=== PATIENT | male | born 1945 | race Caucasian/White ===

== ENCOUNTER 2019-06-22 07:45 | Emergency (ER) | payer MEDICARE ==
[2019-06-22] MEDS ORDERED: Furosemide 40 MG/4 ML VIAL ONE (08:03)
[2019-06-22] MEDS ORDERED: Aspirin Chewable 81 MG TAB ONE (08:03)
[2019-06-22 08:08] LABS: #Basophils 0.1 thou/uL (0.0-0.2); #Eosinphils 0.1 thou/uL (0.0-0.7); #Lymphocytes 0.6 thou/uL (1.20-3.40); #Monocytes 0.6 thou/uL (0.11-0.59); #Neutrophils 4.2 thou/uL (1.40-6.50); %Basophils 2.4 % (0.0-1.0); %Eosinophils 2.2 % (0.0-10.0); %Lymphocytes 10.6 % (21.0-51.0); %Monocytes 10.1 % (0.0-10.0); %Neutrophils 74.6 % (42.0-75.0); Mean Corpuscular HGB CONC 29.5 g/dL (32.0-36.0); Mean Corpuscular Hemoglobin 27.9 pg (27.0-31.0); Mean Corpuscular Volume 94.7 fL (78.0-98.0); Platelet Count 170 thou/uL (130-400); RBC Distribution Width 13.8 % (11.5-14.5); Red Blood Cell (RBC) Count 5.39 mill/uL (4.70-6.10); White Blood Cell (WBC) Count 5.6 thou/uL (4.8-10.8)
--- NOTE | 2019-06-22 08:10 | RAD ---
RADIOGRAPH CHEST 1 VIEW: DATE: 06/22/2019 TIME: 8:07 AM HISTORY: 73-year-old male with dyspnea COMPARISON: 10/10/2014 FINDINGS: New finding of dense opacification of left lower lobe with complete silhouetting the left hemidiaphra gm. No consolidation in the rest of the visualized lung angeles. No pneumothorax. IMPRESSION: Left lower lobe consolidation with possible left pleural effusion.
[2019-06-22 08:28] LABS: ALT (SGPT) 20 U/L (8-55); AST (SGOT) 25 U/L (5-34); Albumin 3.7 g/dL (3.4-4.8); Alkaline Phosphatase 87 U/L (40-110); Anion Gap 15 mmol/L (10-20); BUN (Urea Nitrogen) 22 mg/dL (8.4-25.7); Bilirubin, Total 1.7 mg/dL (0.2-1.2); CK (CPK) 111 U/L (30-200); Calc. Creatinine Clearance 0 mL/min (70-130); Calcium 9.2 mg/dL (7.8-10.44); Carbon Dioxide 27 mmol/L (23-31); Chloride 105 mmol/L (98-107); Estimated GFR-MDRD 48; Globulin 3.3 g/dL (2.4-3.5); Glucose 165 mg/dL (83-110); Potassium 3.7 mmol/L (3.5-5.1); Sodium 143 mmol/L (136-145)
[2019-06-22 08:44] LABS: Bilirubin Negative (Negative); Blood, Urine Trace (Negative); Clarity Clear (Clear); Glucose, Urine (Dipstick) 100 mg/dL (Negative); Leukocyte Negative (Negative); Nitrite Negative (Negative); Protein, Urine (Dipstick) > or equal to 300 mg/dL (Neg-Trace)
[2019-06-22 08:48] LABS: Bacteria/HPF Rare-Few HPF (None Seen); RBC/HPF 0-3 HPF (0-3); Squamous Epithelial 0-3 HPF (0-3); WBC/HPF 0-3 HPF (0-3)
[2019-06-22] MEDS ORDERED: Nitroglycerin 0.4 MG TAB 1 EACH ONE (08:49)
[2019-06-22] MEDS ORDERED: Nitroglycerin 50 MG/250 ML BOT 250 ML ONE (08:51)
[2019-06-22] MEDS ORDERED: Enoxaparin Sodium 40 MG/0.4 ML SYRINGE ONE (09:07)
[2019-06-22] MEDS ORDERED: Enoxaparin Sodium 60 MG/0.6 ML SYRINGE ONE (09:07)
[2019-06-22] MEDS ORDERED: Azithromycin 250 MG TAB ONE (09:35)
[2019-06-22] MEDS ORDERED: cefTRIAXone\\ROCEPHIN 1 GM VIAL ONE (09:35)
== END 2019-06-22 09:58 | disposition short-term general hospital (02) ==
LOC: MADERS 07:45
DX: I50.9 Heart failure, unspecified (principal); I48.91 Unspecified atrial fibrillation; F17.210 Nicotine dependence, cigarettes, uncomplicated
CPT/HCPCS: 71045; 80053; 81003; 81015; 82550; 82553; 83605; 83880; 84484; 85025; 85379; 87040; 87804; 93005; 94760; 96365; 96372; 96375; J0696; J1650; J1940

== ENCOUNTER 2019-06-27 13:32 | Inpatient (IN) | payer MEDICARE ==
[2019-06-27] MEDS ORDERED: Ventolin HFA Inhaler 60 PUFF INHALER INH PRN (21:07)
[2019-06-27] MEDS: Apixaban 5 MG TAB PO SCH (21:32)
[2019-06-27] MEDS: Amlodipine 5 MG TAB PO SCH (21:33)
[2019-06-27] MEDS: Lisinopril 5 MG TAB PO SCH (21:33)
[2019-06-27] MEDS: Atorvastatin Calcium 40 MG TAB PO SCH ×2 (21:33→21:39)
[2019-06-27] MEDS: Gabapentin 300 MG CAP PO PRN (21:40)
[2019-06-27] MEDS: Nicotine 21 MG PATCH TOP SCH (21:42)
[2019-06-27 22:51] VITALS: BMI 29.1
[2019-06-28 05:51] LABS: Band 7 % (5-11); Eosinophils 2 % (0-10); Hemoglobin 13.8 g/dL (14.0-18.0); Lymphocytes 8 % (21-51); MDiff Complete? YES; Mean Corpuscular HGB CONC 30.2 g/dL (32.0-36.0); Mean Corpuscular Hemoglobin 27.8 pg (27.0-31.0); Mean Corpuscular Volume 92.2 fL (78.0-98.0); Monocytes 7 % (0-10); Neutrophil 76 % (42-75); Platelet Count 158 thou/uL (130-400); Platelet Morphology Comment Appears Adequate; RBC Distribution Width 13.5 % (11.5-14.5); Red Blood Cell (RBC) Count 4.95 mill/uL (4.70-6.10); White Blood Cell (WBC) Count 5.4 thou/uL (4.8-10.8)
[2019-06-28 05:58] LABS: ALT (SGPT) 23 U/L (8-55); AST (SGOT) 30 U/L (5-34); Albumin 3.4 g/dL (3.4-4.8); Alkaline Phosphatase 84 U/L (40-110); Anion Gap 14 mmol/L (10-20); BUN (Urea Nitrogen) 24 mg/dL (8.4-25.7); Bilirubin, Total 1.2 mg/dL (0.2-1.2); Calc. Creatinine Clearance 75 mL/min (70-130); Calcium 9.1 mg/dL (7.8-10.44); Carbon Dioxide 25 mmol/L (23-31); Chloride 105 mmol/L (98-107); Estimated GFR-MDRD 56; Globulin 3.2 g/dL (2.4-3.5); Glucose 138 mg/dL (83-110); Potassium 3.8 mmol/L (3.5-5.1); Protein, Total 6.6 g/dL (5.8-8.1); Sodium 140 mmol/L (136-145)
[2019-06-28] MEDS ORDERED: Carvedilol 12.5 MG TAB PO SCH (08:00)
[2019-06-28] MEDS: Apixaban 5 MG TAB PO SCH ×2 (08:13→21:07)
[2019-06-28] MEDS: Furosemide 40 MG TAB PO SCH ×2 (08:13→14:44)
[2019-06-28] MEDS: Carvedilol 12.5 MG TAB PO SCH ×2 (08:13→17:07)
[2019-06-28] MEDS: Aspirin Chewable 81 MG TAB PO SCH (08:13)
[2019-06-28] MEDS: Amlodipine 5 MG TAB PO SCH ×2 (08:13→21:08)
[2019-06-28] MEDS: Lisinopril 5 MG TAB PO SCH ×2 (08:13→21:07)
[2019-06-28] MEDS ORDERED: Acetaminophen 325 MG TAB PO PRN (09:08)
[2019-06-28] MEDS ORDERED: FLU VACC TS2019-20(65YR UP)/PF 180 MCG/0.5 ML SYRINGE IM ONE (21:00)
[2019-06-28] MEDS: Gabapentin 300 MG CAP PO PRN (21:06)
[2019-06-28] MEDS: Atorvastatin Calcium 40 MG TAB PO SCH (21:06)
[2019-06-28] MEDS: Nicotine 21 MG PATCH TOP SCH (21:06)
--- NOTE | 2019-06-29 07:26 | HP ---
Admitted to [facility] on the evening of 06/27/2019. CHIEF COMPLAINT: Weakness and deconditioning following hospitalization for congestive heart failure. HISTORY OF PRESENT ILLNESS: The patient is a 73-year-old white male, who had developed progressive swelling in his lower extremities especially the left, progressive dyspnea on exertion, and eventual enlargement of his abdomen. He became very short of breath prompting his admission at [facility], where he remained from 06/22 until 06/27. The patient was found to have a nonischemic cardiomyopathy with an ejection fraction of 25%. He underwent a CT angio, which showed pulmonary thromboembolism involving the proximal and distal branches of the left lower lobe pulmonary artery. He also was found to have bilateral pleural effusions and ascites. He underwent a heart catheterization on 06/26/2019 by office assistant receptionist, Dr. Griffin, that showed only mild coronary artery disease. He also was found to have some paroxysmal atrial fibrillation. He was treated with diuresis , Coreg and lisinopril. Initially, he was placed on IV heparin and then transitioned to Eliquis. He diuresed a large amount of fluid, dropping his admission weight from 249 to 224. He was also placed in a LifeVest. He was discharged to [facility] on the evening of 06/27/2019 due to his severe weakness and deconditioning. The patient was seen on the violent crimes detective on the 06/28/2019. He said he is doing much better. He is not having the shortness of breath. He has had no chest pain, and he is no longer having any orthopnea. The swelling in his leg is practically gone, and his abdomen has shrunk in size. He is wearing a LifeVest. PAST MEDICAL HISTORY: Hospitalized at [facility] from 06/22 to 06/27 for acute congestive heart failure secondary to a nonischemic cardiomyopathy with an ejection fraction of 25%, also found to have paroxysmal atrial fibrillation, mild coronary artery disease on heart catheterization on 06/26. He was also found to have diabetes. Blood sugars fasting ranging from 138 to 182. The patient has had a left total knee replacement. He has had surgery on the cervical spine at C4-C5 level. He has a long history of smoking a pack and a half a day, but has stopped since this recent admission. PRESENT MEDICINES: 1. Lasix 40 mg b.i.d. 2. Lisinopril 5 mg b.i.d. 3. Lipitor 80 mg daily. 4. Coreg 12.5 mg b.i.d. 5. Aspirin 81 mg daily. 6. Eliquis 5 mg b.i.d. 7. Norvasc 5 mg b.i.d. 8. DuoNeb every 6 hours as needed. 9. Gabapentin 300 mg at bedtime. ALLERGIES: NO KNOWN ALLERGIES. DIET: Heart-healthy diet. No added salt. Fluid restriction of 1500 mL. REVIEW OF SYSTEMS: GENERAL: The patient said his admission weight at [facility] on 06/22 was 249 and weight on admission here on 06/27 was 224. He said he has had no fever. HEAD AND NECK: No complaints. PULMONARY: The patient said his breathing is much better. He is not having any shortness of breath when lying down. CARDIOVASCULAR: No chest pain. The patient is wearing a LifeVest. GASTROINTESTINAL: The patient's stomach is smaller, but he said he has had no nausea or vomiting. No change in bowel habits. GENITOURINARY: No complaint. EXTREMITIES: The swelling has gone down. NEUROPSYCHIATRIC: No complaint. ADLs: The patient has been independent of his ADLs, but since this hospitalization, he feels much weaker than usual. HABITS: The patient has smoked a pack and a half a cigarettes for many years. He stopped with this recent hospitalization using a Nicoderm patch. Alcohol; on rare occasions, he will have a drink. 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 PHYSICAL EXAMINATION: GENERAL: Shows a very pleasant 73-year-old white male, who is sitting on the side of his bed. He is alert, talkative, and appears in no distress. VITAL SIGNS: Show a temperature of 97.1, pulse 60, respirations 16, O2 saturation 96% on room air, blood pressure 164/97. His weight is 224 down from 249 on . His height is 6 feet 2 inches. HEENT: Head is normocephalic. Eyes; pupils are equal, round, and reactive. Sclerae are nonicteric. Ears, TMs are clear. Nose normal. Mouth and throat, normal. Face; the patient has a full escobedo. NECK: Carotids are equal and strong. No bruits. Thyroid not enlarged. LUNGS: Clear. HEART: Regular rate. No murmurs. CHEST: The patient is wearing a LifeVest. ABDOMEN: Soft. No organomegaly. No areas of tenderness. EXTREMITIES: Lower extremities; there is no pitting edema. The left leg is slightly larger than the right. There is no calf tenderness. NEUROPSYCHIATRIC: The patient is alert, oriented x3. Affect seems happy. He has good and equal muscle strength, and no focal weakness. IMPRESSION: 1. Generalized weakness and deconditioning. a. Secondary to recent hospitalization for acute congestive heart failure. 2. Hospitalized at [facility] from 06/22 to 06/27/2019 for acute congestive heart failure secondary to a nonischemic cardiomyopathy, paroxysmal atrial fibrillation, pulmonary embolism, mild coronary artery disease found on heart catheterization on 06/26. 3. Nonischemic cardiomyopathy. a. Ejection fraction 25%. b. Wearing a LifeVest. c. Complicated by acute congestive heart failure. d. No evidence of acute congestive heart failure as of 06/27. 4. Paroxysmal atrial fibrillation. 5. Coronary artery disease. a. Mild coronary artery disease found on heart catheterization on [address] Griffin, office assistant receptionist. 6. Pulmonary embolism involving the proximal and distal branches of the left lower lobe pulmonary artery. a. Initially, managed with heparin and then transitioned to Eliquis. 7. Diabetes mellitus type 2, diet controlled. 8. Dyslipidemia. 9. Cigarette abuse. a. He stopped smoking as of 06/22/2019. PLAN: The patient has been admitted to [facility] for purpose of physical therapy and occupational therapy to help with his deconditioning following this acute hospital stay for acute congestive heart failure. We will continue his present medicines. Will continue a heart-healthy diet and fluid restriction of 1500 mL a day. The patient due to be rechecked by his office assistant receptionist, Dr. Griffin in one month. CODE STATUS: Will check with the patient. Job ID: [id number] MTDD
[2019-06-29] MEDS: Amlodipine 5 MG TAB PO SCH ×2 (08:23→19:19)
[2019-06-29] MEDS: Apixaban 5 MG TAB PO SCH ×2 (08:24→19:18)
[2019-06-29] MEDS: Carvedilol 12.5 MG TAB PO SCH ×2 (08:25→17:34)
[2019-06-29] MEDS: Furosemide 40 MG TAB PO SCH ×2 (08:25→14:36)
[2019-06-29] MEDS: Lisinopril 5 MG TAB PO SCH ×2 (08:25→19:19)
[2019-06-29] MEDS: Aspirin Chewable 81 MG TAB PO SCH (08:27)
[2019-06-29] MEDS: Nicotine 21 MG PATCH TOP SCH (19:18)
[2019-06-29] MEDS: Atorvastatin Calcium 40 MG TAB PO SCH (19:18)
[2019-06-29 19:20] VITALS: BP 162/79
[2019-06-29 19:31] VITALS: TEMP 97
== END 2019-06-29 19:36 | disposition home or self-care (01) | DRG 291 ==
LOC: MADMS 20:19
PROVIDERS: ADMIT Family Medicine; ATTEND Family Medicine
DX: I50.9 Heart failure, unspecified (principal); I26.99 Other pulmonary embolism without acute cor pulmonale; Z51.89 Encounter for other specified aftercare; I42.8 Other cardiomyopathies; R53.1 Weakness; R53.81 Other malaise; I48.0 Paroxysmal atrial fibrillation; I25.10 Atherosclerotic heart disease of native coronary artery without angina pectoris; E11.9 Type 2 diabetes mellitus without complications; F17.210 Nicotine dependence, cigarettes, uncomplicated; E78.5 Hyperlipidemia, unspecified; Z79.82 Long term (current) use of aspirin; Z79.899 Other long term (current) drug therapy
CPT/HCPCS: 36415; 36416; 80053; 85007; 85027

== ENCOUNTER 2019-10-04 19:34 | Emergency (ER) | payer MEDICARE ==
[2019-10-04] MEDS ORDERED: Pantoprazole 40 MG VIAL ONE (20:11)
[2019-10-04 21:00] LABS: #Basophils 0.1 thou/uL (0.0-0.2); #Eosinphils 0.1 thou/uL (0.0-0.7); #Lymphocytes 1.3 thou/uL (1.20-3.40); #Monocytes 0.6 thou/uL (0.11-0.59); #Neutrophils 2.9 thou/uL (1.40-6.50); %Basophils 1.5 % (0.0-1.0); %Eosinophils 2.4 % (0.0-10.0); %Lymphocytes 25.3 % (21.0-51.0); %Monocytes 11.6 % (0.0-10.0); %Neutrophils 59.2 % (42.0-75.0); Hemoglobin 6.7 g/dL (14.0-18.0); Mean Corpuscular HGB CONC 32.9 g/dL (32.0-36.0); Mean Corpuscular Hemoglobin 31.1 pg (27.0-31.0); Mean Corpuscular Volume 94.6 fL (78.0-98.0); Mean Platelet Volume 7.1 fL (7.4-10.4); Platelet Count 216 thou/uL (130-400); RBC Distribution Width 15.3 % (11.5-14.5); Red Blood Cell (RBC) Count 2.15 mill/uL (4.70-6.10); White Blood Cell (WBC) Count 4.9 thou/uL (4.8-10.8)
[2019-10-04 21:03] LABS: Prothrombin Time 13.6 SEC (12.0-14.7)
[2019-10-04 21:20] LABS: ALT (SGPT) 20 U/L (8-55); AST (SGOT) 23 U/L (5-34); Albumin 3.5 g/dL (3.4-4.8); Alkaline Phosphatase 68 U/L (40-110); Anion Gap 13 mmol/L (10-20); BUN (Urea Nitrogen) 34 mg/dL (8.4-25.7); Bilirubin, Total 0.4 mg/dL (0.2-1.2); Calc. Creatinine Clearance 0 mL/min (70-130); Calcium 8.9 mg/dL (7.8-10.44); Carbon Dioxide 25 mmol/L (23-31); Chloride 108 mmol/L (98-107); Estimated GFR-MDRD 63; Globulin 3.2 g/dL (2.4-3.5); Glucose 116 mg/dL (83-110); Potassium 3.8 mmol/L (3.5-5.1); Protein, Total 6.7 g/dL (5.8-8.1); Sodium 142 mmol/L (136-145)
--- NOTE | 2019-10-04 21:28 | RAD ---
EXAM: CHEST TWO VIEWS: 10/04/19 HISTORY: Dyspnea. COMPARISON: 06/22/19. FINDINGS: Heart size is within normal limits. The lungs are clear. No confluent pneumonia, overt edema, or pleu ral effusion. IMPRESSION: No significant acute intrathoracic disease. POS: RRE
== END 2019-10-04 23:38 | disposition short-term general hospital (02) ==
LOC: MADERS 19:34
DX: K92.2 Gastrointestinal hemorrhage, unspecified (principal); I11.0 Hypertensive heart disease with heart failure; I50.9 Heart failure, unspecified; J06.9 Acute upper respiratory infection, unspecified; I48.91 Unspecified atrial fibrillation; F17.210 Nicotine dependence, cigarettes, uncomplicated; Z79.899 Other long term (current) drug therapy
CPT/HCPCS: 36430; 71046; 80053; 82274; 83880; 85025; 85610; 86850; 86900; 86901; 87804; 96374; C9113; P9016

== ENCOUNTER 2020-03-18 10:59 | Outpatient (CLI) | payer MEDICARE ==
--- NOTE | 2020-03-18 11:42 | RAD ---
LUMBAR SPINE 5 VIEWS INCLUDING FLEXION AND EXTENSION VIEWS: HISTORY: Lumbar radiculopathy. FINDINGS: The standing lateral and flexion and extension views barely include the L5-S1 level. Extensive multilevel disk-osteophytosis and facet arthrosis. Mild grade I anterolisthesis of L4 on L 5 without evidence for abnormal translation between flexion and extension. Evidence for multiple gallstones. IMPRESSION: Mild grade I anterolisthesis of L4 on L5 without overt abnormal translation. Multilevel disk-osteophytosis and facet arthrosis. Evidence for multiple gallstones. POS: RRE
== END 2020-03-18 11:00 | disposition home or self-care (01) ==
LOC: MADRAD 10:59
PROVIDERS: ATTEND Neurological Surgery
DX: M47.26 Other spondylosis with radiculopathy, lumbar region (principal); M43.16 Spondylolisthesis, lumbar region; K80.20 Calculus of gallbladder without cholecystitis without obstruction; M25.78 Osteophyte, vertebrae
CPT/HCPCS: 72110

== ENCOUNTER 2020-05-09 17:28 | Inpatient (IN) | payer MEDICARE ==
[2020-05-09] MEDS ORDERED: Milk Of Magnesia 30 ML UDCUP PO PRN (20:31)
[2020-05-09] MEDS ORDERED: Promethazine 25 MG TAB PO PRN (20:40)
[2020-05-09] MEDS ORDERED: Tamsulosin HCl 0.4 MG CAP PO PRN (20:41)
[2020-05-09] MEDS ORDERED: Scopolamine 1.5 mg/72 hour Patch TOP PRN (20:41)
[2020-05-09] MEDS ORDERED: Dextrose 5% in Water 1,000 ML IV PRN (20:45)
[2020-05-09] MEDS ORDERED: Dextrose 50% Abboject 50 ML SYRINGE IVP PRN (20:45)
[2020-05-09] MEDS ORDERED: Acetaminophen 325 MG TAB PO PRN (20:46)
[2020-05-09] MEDS ORDERED: HYDROcodone/Acetaminophen 5/325 mg Tablet PO PRN ×2 (20:46→20:49)
[2020-05-09] MEDS ORDERED: Mag-Al Plus 1200 MG/1200 MG/120 MG/30 ML UDCUP PO PRN (20:49)
[2020-05-09] MEDS ORDERED: cloNIDine 0.1 MG TAB PO PRN (20:52)
[2020-05-09] MEDS ORDERED: Lantus 1000 UNITS/10 ML VIAL SC SCH (21:00)
[2020-05-09] MEDS: Gabapentin 300 MG CAP PO SCH (21:42)
[2020-05-09] MEDS: Atorvastatin Calcium 40 MG TAB PO SCH (21:42)
[2020-05-09] MEDS: Carvedilol 3.125 MG TAB PO SCH (21:43)
[2020-05-09] MEDS: Lantus 1000 UNITS/10 ML VIAL SC SCH (21:43)
[2020-05-09] MEDS: HumaLOG 300 UNITS/3 ML VIAL SC PRN (21:44)
[2020-05-09] MEDS: Nicotine 21 MG PATCH TOP SCH (21:47)
[2020-05-10 05:47] LABS: #Basophils 0.1 thou/uL (0.0-0.2); #Eosinphils 0.2 thou/uL (0.0-0.7); #Lymphocytes 0.6 thou/uL (1.20-3.40); #Monocytes 0.4 thou/uL (0.11-0.59); #Neutrophils 4.2 thou/uL (1.40-6.50); %Basophils 1.7 % (0.0-1.0); %Eosinophils 3.5 % (0.0-10.0); %Lymphocytes 10.4 % (21.0-51.0); %Monocytes 7.1 % (0.0-10.0); %Neutrophils 77.1 % (42.0-75.0); Hemoglobin 10.7 g/dL (14.0-18.0); Mean Corpuscular HGB CONC 33.1 g/dL (32.0-36.0); Mean Corpuscular Hemoglobin 31.2 pg (27.0-31.0); Mean Corpuscular Volume 94.3 fL (78.0-98.0); Mean Platelet Volume 8.7 fL (7.4-10.4); Platelet Count 132 thou/uL (130-400); RBC Distribution Width 12.1 % (11.5-14.5); Red Blood Cell (RBC) Count 3.42 mill/uL (4.70-6.10); White Blood Cell (WBC) Count 5.5 thou/uL (4.8-10.8)
[2020-05-10 05:59] LABS: ALT (SGPT) 10 U/L (8-55); AST (SGOT) 24 U/L (5-34); Albumin 2.7 g/dL (3.4-4.8); Alkaline Phosphatase 111 U/L (40-110); Anion Gap 15 mmol/L (10-20); BUN (Urea Nitrogen) 15 mg/dL (8.4-25.7); Bilirubin, Total 1.4 mg/dL (0.2-1.2); Calc. Creatinine Clearance 76 mL/min (70-130); Calcium 8.2 mg/dL (7.8-10.44); Carbon Dioxide 25 mmol/L (23-31); Chloride 102 mmol/L (98-107); Estimated GFR-MDRD 60; Glucose 221 mg/dL (83-110); Potassium 3.4 mmol/L (3.5-5.1); Protein, Total 5.7 g/dL (5.8-8.1); Sodium 139 mmol/L (136-145)
[2020-05-10] MEDS ORDERED: HYDROcodone/Acetaminophen 5/325 mg Tablet PO SCH (06:15)
[2020-05-10] MEDS: Gabapentin 300 MG CAP PO SCH ×3 (08:37→20:13)
[2020-05-10] MEDS: Carvedilol 3.125 MG TAB PO SCH ×2 (08:38→20:13)
[2020-05-10] MEDS: Lantus 1000 UNITS/10 ML VIAL SC SCH ×2 (08:40→20:14)
[2020-05-10] MEDS: HumaLOG 300 UNITS/3 ML VIAL SC PRN ×3 (08:43→17:05)
[2020-05-10] MEDS ORDERED: HYDROcodone/Acetaminophen 5/325 mg Tablet PO PRN (10:00)
[2020-05-10] MEDS ORDERED: Bisacodyl 10 MG SUPP PR PRN (13:13)
[2020-05-10] MEDS: Fluconazole 100 MG TAB PO SCH (13:44)
[2020-05-10] MEDS: HYDROcodone/Acetaminophen 5/325 mg Tablet PO PRN ×2 (14:04→20:21)
[2020-05-10] MEDS: Atorvastatin Calcium 40 MG TAB PO SCH (20:13)
[2020-05-10] MEDS: Clotrimazole 1% Cream 15 GM TUBE TOP SCH (20:16)
[2020-05-10] MEDS: Nicotine 21 MG PATCH TOP SCH (20:22)
[2020-05-11] MEDS: HYDROcodone/Acetaminophen 5/325 mg Tablet PO PRN ×3 (04:40→21:12)
--- NOTE | 2020-05-11 08:30 | HP ---
CHIEF COMPLAINT: Weakness following back surgery. HISTORY OF PRESENT ILLNESS: The patient is a 74-year-old white male, who has a history of nonischemic cardiomyopathy with an ejection fraction of 25% to 30%, paroxysmal atrial fibrillation, pulmonary embolism, and mild coronary artery disease. He also has history of hypertension, diabetes type 2 that had been controlled without medication, but the patient had been very poor about any followup and has not had any recent evaluation. The patient had developed increasing pain in his back with radicular symptoms in his right leg and increasing weakness in his right leg secondary to disk herniation at L2-L3 with canal stenosis and L3 radiculopathy and lateral recess stenosis at L3-L4 and L4-L5. His neuro surgeon, Dr. Childers, admitted him, and on 05/06/2020, the patient underwent a decompressive laminectomy, medial facetectomy, foraminotomy at L2-L3, L3-L4, L4- L5, and L2-L3 microdiscectomy. He also had an intervertebral biomechanical fusion at L4-L5 with allograft. During surgery, he was found that his diabetes was very poorly controlled and had blood sugars up into the 600. His postop course was complicated by initially severe pain in his back that was managed with IV morphine and inability to get up or move his legs due to the pain. This improved with the pain management and he was placed in a back brace and Physical Therapy worked with him where he was up walking a few feet, but could not sit for any length of time. He required an indwelling Lofton catheter due to his inability to get up and urinate. His diabetes was found to be poor control. Historically, back in 2019, he had had hemoglobin A1c was 7.3. During this recent admission, his hemoglobin A1c was 14. He was placed on Lantus and then placed on an aggressive sliding scale with improvement in his blood sugar. He was left extremely weak. He also has a history of alcohol abuse, which he said he drank to help control some of the pain and help him sleep at night. This, he says he stopped. He also has a history of cigarette abuse, for which he has cut down. The patient was transferred to [facility] on the evening of 05/09/2020 for purpose of physical therapy, occupational therapy, and continued management of his diabetes. The patient was seen early on the morning of 05/10/2020 and was able to review with me what had happened to him with this recent hospitalization. This morning, he is feeling good, his breathing is good, he just says the pain in the low back is better. PAST MEDICAL HISTORY: Hospitalized at [facility] from 05/06/2020 until 05/09/2020 for the lumbar intervertebral disk herniation at L2-L3 with canal stenosis and L3 radiculopathy, for which he underwent a decompressive surgery at L2-L3, L3-L4, L4-L5, and fusion at the L4-L5 level. Hospitalization was complicated by diabetes mellitus out of control. The patient has nonischemic cardiomyopathy with an ejection fraction of 25% to 30% on echocardiogram of 06/23/2019 with a left atrial enlargement. The patient has a history of mild coronary artery disease, paroxysmal atrial fibrillation, and pulmonary embolism in June 2019. The patient wore a LifeVest for a while. The patient had been on Eliquis for his pulmonary embolism. He required hospitalization from 10/05/2019 until 10/07/2019 for severe anemia. He had stopped his Eliquis for a few days prior to this admission. He required transfusion of 3 units of packed RBCs, underwent EGD, and found some redness of the gastric mucosa, but no acute bleeding, no ulceration. Colonoscopy was normal. He has been left off blood thinners and has been on just a baby aspirin since, he has had no trouble with any bleeding. The patient has diabetes type 2, last hemoglobin A1c was 7.7 on 08/16/2019. He has had no followup with this and had been on no medication. Hemoglobin A1c during hospitalization on 05/06 was 14. The patient has hypertension, chronic kidney disease, hyperlipidemia. The patient has undergone fusion of C4-C5 in 1995. He has had a previous lumbar laminectomy in 2010. He has been treated for acute congestive heart failure in June 2019. He has had a left total knee replacement. COPD. PRESENT MEDICATIONS: 1. Acetaminophen 325 mg 2 every 4 hours as needed for pain. 2. Maalox 30 mL every 4 hours as needed. 3. DuoNeb 3 mL q.i.d. and every 4 hours as needed. 4. Atorvastatin 80 mg at bedtime. 5. Carvedilol 3.125 mg b.i.d. 6. Clonidine 0.1 mg p.o. every 4 hours p.r.n. systolic blood pressure greater than 180. 7. Gabapentin 600 mg t.i.d. 8. Lantus 10 units subcu at bedtime. 9. Lantus 5 units subcu q.a.m. 10. Humalog a.c. by the aggressive scale. 11. Milk of magnesia 30 mL every 12 hours. 12. Nicotine patch 21 mg every 24 hours. 13. Pantoprazole 40 mg daily. 14. Promethazine 12.5 mg every 6 hours p.r.n. 15. Scopolamine 1.5 mg every 3 days p.r.n. dizziness. 16. Tizanidine 4 mg q.6 hours p.r.n. ALLERGIES: LORAZEPAM, CAUSES AGITATION; FENTANYL. REVIEW OF SYSTEMS: GENERAL: The patient has had no recent fever. He has had no recent weight gain or loss. HEAD AND NECK: No complaints. EYES: The patient said he needs to have his eyes checked, has not had them checked in a long time. PULMONARY: No complaints. Has a little cough, which is chronic. CARDIOVASCULAR: No chest pain. GI: No nausea, vomiting, or change in bowel habits. : The patient has indwelling Lofton catheter. Prior to the hospitalization, he has had no symptoms. ENDOCRINE: No weight gain. No increased thirst or urinary frequency. Does not follow his blood sugar at home and has been very poorly compliant with the followups on his history of diabetes. MUSCULOSKELETAL: Weakness in the right leg. NEUROLOGIC: The patient was having pain extending down the right leg that is a lot better since his back surgery. NEUROPSYCHIATRIC: The patient has a history of depression, but doing well now. ADLs: Prior to hospitalization, independent of his ADLs. HABITS: The patient smokes at least a pack of cigarettes a day. Alcohol, the patient will have 4 to 5 shots of whiskey daily. SOCIAL HISTORY: The patient is . Lives with his . Code status, DNR, which will be confirmed with the patient. PHYSICAL EXAMINATION: GENERAL: Shows a pleasant 74-year-old white male, who is lying in bed. He has indwelling Lofton catheter and oxygen on. He is alert, talkative, oriented x3. He has a little slight cough, but appears in no distress. VITAL SIGNS: Show a temperature 98.4, pulse 83, respirations 20, O2 saturation 92% on room air, blood pressure 148/92. Weight 214. HEAD: Normocephalic and atraumatic. EYES: Pupils are equal, round, reactive. Sclerae nonicteric. NOSE: Normal. MOUTH AND THROAT: There is a little slight reddish discoloration in the mouth and a little dryness. NECK: Carotids are equal and strong. No bruits. Thyroid not enlarged. LUNGS: Clear. HEART: Regular rate. No murmurs. ABDOMEN: Soft with no organomegaly. No areas of tenderness. GENITALIA: The patient has indwelling Lofton catheter. BACK: The patient has a dressing over a midline vertical incision in the upper lumbar spine. EXTREMITIES: No edema. NEUROLOGIC: Alert, oriented x3 with generalized weakness, nonfocal. SKIN: No rash. IMPRESSION: 1. Generalized weakness and gait abnormality. a. Following decompressive surgery on lumbar spine. 2. Diabetes mellitus type 2, out of control. a. Hemoglobin A1c on 05/06 was 14. b. Presently on Lantus and Humalog and controlled, improving. 3. Hospitalized at [facility] from 05/06 until 05/09 for disk herniation L2-L3 with canal stenosis and L3 radiculopathy, for which he underwent a decompressive surgery and fusion at L4-L5 and diabetes out of control. 4. Nonischemic cardiomyopathy. a. Ejection fraction 25% to 30% on echocardiogram on 06/23/2019. b. No evidence of acute congestive heart failure as of 05/10/2020. 5. Paroxysmal atrial fibrillation. a. Had been on anticoagulant, Eliquis that was stopped due to gastrointestinal bleed in September 2019. 6. Pulmonary embolism, June 2019. a. Treated with Eliquis up until September of 2019 that was stopped due to gastrointestinal bleed, since has been managed on low-dose aspirin. 7. Hyperlipidemia. 8. Hypertension. 9. Cigarette abuse. 10. Alcohol abuse, has stopped since his admission on 05/06/2020. 11. Indwelling Lofton catheter since surgery due to his inability to get up to urinate. 12. Chronic obstructive pulmonary disease. PLAN: The patient has been admitted to [facility] for purpose of physical therapy and occupational therapy in an effort to try to improve his general functional capabilities. His diabetes will be managed with diet with basal insulin using Lantus and Humalog a.c. Right now, this is on an aggressive sliding scale, but later we will set this dosage after have a little more feel for his needs. The patient is trying to stop his smoking and also says he has given up the alcohol. His pain has been well managed. Right now, we will manage his DVT prophylaxis by PARESH greenfield and SCDs. CODE STATUS: DNR. Job ID: [id number] MTDD
[2020-05-11] MEDS: Gabapentin 300 MG CAP PO SCH ×3 (08:48→21:11)
[2020-05-11] MEDS: Polyethylene Glycol 3350 17 GM Packet PO SCH (08:48)
[2020-05-11] MEDS: Clotrimazole 1% Cream 15 GM TUBE TOP SCH ×2 (08:49→21:12)
[2020-05-11] MEDS: Lantus 1000 UNITS/10 ML VIAL SC SCH ×2 (08:49→21:13)
[2020-05-11] MEDS: Carvedilol 3.125 MG TAB PO SCH ×2 (08:49→21:11)
[2020-05-11] MEDS: HumaLOG 300 UNITS/3 ML VIAL SC PRN (08:50)
[2020-05-11] MEDS: HumaLOG 300 UNITS/3 ML VIAL SC SCH ×2 (11:56→17:06)
[2020-05-11] MEDS: Fluconazole 100 MG TAB PO SCH (15:01)
[2020-05-11] MEDS: Atorvastatin Calcium 40 MG TAB PO SCH (21:12)
[2020-05-11] MEDS: Nicotine 21 MG PATCH TOP SCH (21:37)
[2020-05-12] MEDS: HYDROcodone/Acetaminophen 5/325 mg Tablet PO PRN (03:46)
--- NOTE | 2020-05-12 05:55 | PRG ---
DATE OF SERVICE: 05/11/2020 SUBJECTIVE: The patient says he feels better today. Yesterday with physical therapy, he said he was able to walk. He walked down to the nurses station and back. He walked about 200 feet with a rolling walker and caregiver assistance. He required [id number] assistance with transfers. He has not yet been sitting up in a chair. He still has his indwelling Lofton catheter. OBJECTIVE: GENERAL: The patient is lying in bed with the head elevated. He is alert and talkative, answers questions appropriately and appears comfortable and in no distress. VITAL SIGNS: His temperature is 97.7, pulse 89, respirations 18, O2 saturation 97% on 3 L, and blood pressure 145/85. LUNGS: Clear. HEART: Regular rate. EXTREMITIES: No edema. SKIN: The incision on his back has an overlying dressing that is dry. There is no surrounding redness nor drainage. LABORATORY DATA: His FBS this morning, which is pending. His blood sugars yesterday were running in the 200s. Yesterday, the patient was started on Diflucan and clotrimazole cream for candidiasis of the glans penis and in the inguinal area. The patient has been receiving Humalog according to a sliding scale, he received 3 units at supper, 6 units at lunch, and 6 units at breakfast yesterday. ASSESSMENT: 1. Generalized weakness and gait abnormality. a. Following decompressive surgery of the lumbar spine. 2. Diabetes mellitus type 2, out of control. a. Hemoglobin A1c on 05/06/2020 of 14. b. Presently on Lantus and Humalog by sliding scale with control better as of 05/11. 3. Hospitalized at [facility] from 05/06 until 05/09 for disk herniation at L2-L3 with canal stenosis and L3 right-sided radiculopathy, for which he underwent a decompressive surgery and fusion at L4-L5 and also for diabetes out of control. 4. Nonischemic cardiomyopathy. a. Ejection fraction 25% to 30% on echocardiogram on 06/23/2019. b. No evidence of acute congestive heart failure as of 05/11. 5. Paroxysmal atrial fibrillation. a. Had been on anticoagulation, Eliquis that stopped due to gastrointestinal bleed in September 2019. 6. Pulmonary embolism, June 2019. a. Treated with Eliquis and stopped September of 2019 due to a significant gastrointestinal bleed. b. Now managed on low-dose aspirin. 7. Hyperlipidemia. 8. Hypertension. 9. Cigarette abuse. 10. Alcohol abuse, stopped since his admission on 05/06. 11. Indwelling Lofton catheter. 12. Chronic obstructive pulmonary disease. PLAN: We will try tapering his O2. We will combine the Lantus 5 units in the morning, 10 at night to 15 units that he will receive at night. We will start him on a Humalog 5 units before meals, then hold if blood sugar less than 100. Continue PT and OT. Job ID: [id number] MTDD
[2020-05-12] MEDS: Gabapentin 300 MG CAP PO SCH ×3 (09:33→20:59)
[2020-05-12] MEDS: Carvedilol 3.125 MG TAB PO SCH ×3 (09:33→20:59)
[2020-05-12] MEDS: HumaLOG 300 UNITS/3 ML VIAL SC SCH ×3 (09:38→17:09)
[2020-05-12] MEDS: Polyethylene Glycol 3350 17 GM Packet PO SCH (09:38)
[2020-05-12] MEDS: Clotrimazole 1% Cream 15 GM TUBE TOP SCH ×2 (09:38→20:59)
[2020-05-12] MEDS: traMADol HCl 50 MG TAB PO PRN (09:45)
--- NOTE | 2020-05-12 13:18 | PRG ---
DATE OF SERVICE: 05/12/2020 SUBJECTIVE: The patient has already been up walking with physical therapy. He is presently sitting up in a chair. He asked to stop the [place]. He says it is causing very vivid dreams. He is afraid he will wake up in a dream and try to get up and fall. His pain level is doing better. Overall, he is feeling better. OBJECTIVE: GENERAL: The patient is sitting up in a chair. Later was up in the hallways walking. He has a mild cough, but appears in no distress. VITAL SIGNS: His temp is 97.9, pulse is 75, respirations 20, O2 saturation 95% on 2L, blood pressure 123/73. LUNGS: Clear. HEART: Regular rate. EXTREMITIES: No edema. LABORATORY DATA: His FBS this morning was 202. At bedtime it was 157. ASSESSMENT: 1. Generalized weakness and gait abnormality. a. Following decompressive surgery of the lumbar spine for spinal stenosis. 2. Diabetes type 2, out of control. a. Hemoglobin A1c on 05/06/20, 14. b. Presently improved as he is receiving a basal insulin with Lantus and I have started him on a preprandial insulin with Humalog. FBS this morning 202 as of 05/12. 3. Hospitalized at [facility] from 05/06 until 05/09 for disk herniation at the L2-3 level with canal stenosis at L3, right-sided radiculopathy for which he underwent a decompressive surgery and fusion at L4-5 and also for diabetes out of control. 4. Nonischemic cardiomyopathy. a. Ejection fraction 25-30% on echocardiogram of 06/23/19. b. No evidence of acute congestive heart failure as of 05/12. 5. Paroxysmal atrial fibrillation. a. Had been on anticoagulation with Eliquis, but stopped due to a gastrointestinal bleed in September 2019. 6. Pulmonary embolism, June 2019. a. Treated with Eliquis and stopped in September 2019 due to significant gastrointestinal bleed. b. Now managed with low-dose aspirin. 7. Hyperlipidemia. 8. Hypertension. 9. Cigarette abuse. 10. Alcohol abuse. Has been off the alcohol since admission on 05/06. 11. Indwelling catheter. 12. Chronic obstructive pulmonary disease. PLAN: The patient is doing better. O2 is trying to be gradually weaned from him. He is on incentive spirometry treatments and also neb treatments. We will stop the hydrocodone since it is causing the very vivid dreams and try the Tylenol and then use tramadol 50 mg every 6 hours if needed. Continue OT and PT. Will soon like to remove his Lofton catheter. Job ID: [id number] MTDD
[2020-05-12] MEDS: Fluconazole 100 MG TAB PO SCH (14:20)
[2020-05-12] MEDS: Atorvastatin Calcium 40 MG TAB PO SCH (20:59)
[2020-05-12] MEDS: Nicotine 21 MG PATCH TOP SCH (21:00)
[2020-05-12] MEDS: Lantus 1000 UNITS/10 ML VIAL SC SCH (21:00)
[2020-05-13] MEDS: traMADol HCl 50 MG TAB PO PRN ×2 (08:01→20:55)
[2020-05-13] MEDS: HumaLOG 300 UNITS/3 ML VIAL SC SCH ×3 (08:42→17:04)
[2020-05-13] MEDS: Gabapentin 300 MG CAP PO SCH ×3 (08:43→20:56)
[2020-05-13] MEDS: Carvedilol 3.125 MG TAB PO SCH ×2 (08:43→20:56)
[2020-05-13] MEDS: Polyethylene Glycol 3350 17 GM Packet PO SCH (08:43)
[2020-05-13] MEDS: Clotrimazole 1% Cream 15 GM TUBE TOP SCH ×2 (08:50→20:54)
--- NOTE | 2020-05-13 10:53 | PRG ---
DATE OF SERVICE: 05/13/2020 SUBJECTIVE: The patient said he rested well last night. He is feeling good today. He has not yet been to therapy. He did sit up much more in the chair yesterday. OBJECTIVE: GENERAL: The patient's temp is 98, pulse 73, respirations 20, O2 saturation 95% on room air, and blood pressure 143/83. Yesterday, when the patient was walking without his O2, it dropped to 83. He was replaced with 2 L, the O2 coming up in the mid 90s. LUNGS: Clear. HEART: Regular rate. EXTREMITIES: No edema. LABORATORY DATA: His FBS this morning was 150. At bedtime, sugar was 110. ASSESSMENT: 1. Generalized weakness and gait abnormality. a. Following surgery on his lumbar spine for spinal stenosis. 2. Diabetes, type 2, out of control. a. Hemoglobin A1c of 14 on 05/06. b. Improving on basal and preprandial insulin. 3. Hospitalized at [facility] from 10.6 to 10.9 for disk herniation at the L2-L3 level with spinal stenosis at L3 and right-sided radiculopathy, for which he underwent a decompressive surgery and fusion at L4-L5. Also, hospitalized for diabetes out of control. 4. Nonischemic cardiomyopathy. a. Ejection fraction 25% to 30% on echocardiogram on 06/23/2019. b. No evidence of acute failure as of 05/13. 5. Paroxysmal atrial fibrillation. a. Had been on anticoagulant with Eliquis, but stopped in September 2019 due to a significant gastrointestinal bleed. 6. Pulmonary embolism, June 2019. a. Treated with Eliquis, but stopped in September 2019 due to significant GI bleed. b. Now on low-dose aspirin. 7. Hyperlipidemia. 8. Hypertension. 9. Cigarette abuse. He has been off cigarettes since hospitalization. 10. Alcohol abuse, been off the alcohol since admission on 05/06. 11. Indwelling catheter since he has been unable to get up to urinate. 12. Chronic obstructive pulmonary disease. PLAN: Continue present care. Continue PT and OT. We will probably try removing catheter tomorrow. [facility] ID[facility] [id number] [facility]
[2020-05-13] MEDS: tiZANidine HCl 4 MG TAB PO PRN (13:59)
[2020-05-13] MEDS: Fluconazole 100 MG TAB PO SCH (14:00)
[2020-05-13] MEDS: Nicotine 21 MG PATCH TOP SCH (20:55)
[2020-05-13] MEDS: Atorvastatin Calcium 40 MG TAB PO SCH (20:55)
[2020-05-13] MEDS: Lantus 1000 UNITS/10 ML VIAL SC SCH (20:56)
[2020-05-14] MEDS: Gabapentin 300 MG CAP PO SCH ×3 (08:03→20:15)
[2020-05-14] MEDS: tiZANidine HCl 4 MG TAB PO PRN ×2 (08:03→16:24)
[2020-05-14] MEDS: Carvedilol 3.125 MG TAB PO SCH ×2 (08:03→20:15)
[2020-05-14] MEDS: traMADol HCl 50 MG TAB PO PRN ×3 (08:04→22:29)
[2020-05-14] MEDS: HumaLOG 300 UNITS/3 ML VIAL SC SCH ×3 (08:05→17:12)
[2020-05-14] MEDS: Polyethylene Glycol 3350 17 GM Packet PO SCH (08:05)
[2020-05-14] MEDS: Clotrimazole 1% Cream 15 GM TUBE TOP SCH ×2 (08:08→20:19)
--- NOTE | 2020-05-14 11:56 | PRG ---
DATE OF SERVICE: 05/14/2020 SUBJECTIVE: The patient is up in a chair preparing to eat breakfast. He says he is sore this morning, but just getting his pain medication. He said the tramadol worked very well for him and he is not having the after effects or the vivid dreams. He says he is doing better once he is up, but is very slow to get up. He would like to leave the catheter in a little longer until he is just a little stronger. He knows he will not be able to get up quick enough without being incontinent. The patient is down to 1 L by nasal cannula. OBJECTIVE: GENERAL: The patient is alert, appears in no acute distress. VITAL SIGNS: His temperature is 97.3, pulse 71, respirations 18, O2 saturation 96%, and blood pressure 128/80. LUNGS: Good breath sounds. There are some mild expiratory rhonchi present. HEART: Regular rate. EXTREMITIES: No edema. LABORATORY DATA: His FBS this morning was 201. ASSESSMENT: 1. Generalized weakness and gait abnormality. a. Following surgery on his lumbar spine for spinal stenosis. 2. Diabetes type 2 out of control. a. Hemoglobin A1c 14 on 05/06. b. Control improving, stabilizing on a basal dose of Lantus and preprandial dose of Humalog as of 05/14. 3. Hospitalized at [facility] from 05/06 to 05/09 for disk herniation at the L2-L3 level causing spinal stenosis, particularly at the L3 level and right-sided radiculopathy, for which he underwent a decompressive surgery and fusion at L4-L5. Also, hospitalized for diabetes out of control. 4. Nonischemic cardiomyopathy. a. Ejection fraction 25% to 30% on echocardiogram on 06/23/2019. b. No evidence of acute failure as of 05/14. 5. Paroxysmal atrial fibrillation. a. Anticoagulant Eliquis stopped in September of 2019 due to significant gastrointestinal bleed. 6. Pulmonary embolism, June 2019. a. Treated with Eliquis that was stopped in September 2019 due to significant gastrointestinal bleed. b. Now on low-dose aspirin. 7. Hyperlipidemia. 8. Hypertension. 9. Cigarette abuse, remains off cigarettes during hospitalization. 10. Alcohol abuse, has been off alcohol since admission. 11. Indwelling Lofton catheter due to inability to get up quick enough in order to urinate. 12. Chronic obstructive pulmonary disease. PLAN: The patient is improving. His O2 has been able to be gradually tapered, but still tends to drop with activities. He is doing better on the tramadol. We will leave the catheter a little longer to allow him to get a little bit stronger. Job ID: [id number] [facility]
[2020-05-14] MEDS: Fluconazole 100 MG TAB PO SCH (13:38)
[2020-05-14] MEDS: Nicotine 21 MG PATCH TOP SCH (20:15)
[2020-05-14] MEDS: Lantus 1000 UNITS/10 ML VIAL SC SCH (20:15)
[2020-05-14] MEDS: Atorvastatin Calcium 40 MG TAB PO SCH (20:15)
[2020-05-15] MEDS: Lantus 1000 UNITS/10 ML VIAL SC SCH (08:08)
[2020-05-15] MEDS: Gabapentin 300 MG CAP PO SCH ×3 (08:09→21:19)
[2020-05-15] MEDS: Carvedilol 3.125 MG TAB PO SCH ×2 (08:09→21:19)
[2020-05-15] MEDS: Polyethylene Glycol 3350 17 GM Packet PO SCH (08:10)
[2020-05-15] MEDS: HumaLOG 300 UNITS/3 ML VIAL SC SCH ×3 (08:12→17:20)
[2020-05-15] MEDS: Furosemide 40 MG TAB PO SCH (08:52)
[2020-05-15] MEDS: Aspirin 81 mg Enteric Coated Tablet PO SCH (08:52)
[2020-05-15] MEDS: Senokot S 8.6-50 MG TAB PO SCH ×2 (08:52→21:18)
--- NOTE | 2020-05-15 08:52 | RAD ---
EXAM: Chest PA and lateral: HISTORY: Cardiomyopathy COMPARISON: 10/04/2019 FINDINGS: Heart: Cardiomegaly. Aorta: Atherosclerotic Pulmonary vessels: Prominent Costophrenic angles: Costophrenic angles are clear. Lungs: Chronic lung parenchymal changes. No masses or consolidation. Pneumothorax: No pneumothorax Osseous structures: No osseous abnormalities. Chronic changes involving the distal left apical. IMPRESSION: 1. Cardiomegaly. 2. Atherosclerosis 3. Chronic lung parenchymal changes.
[2020-05-15] MEDS: Clotrimazole 1% Cream 15 GM TUBE TOP SCH ×2 (09:13→21:20)
[2020-05-15 09:22] LABS: ALT (SGPT) 23 U/L (8-55); AST (SGOT) 34 U/L (5-34); Albumin 3.2 g/dL (3.4-4.8); Alkaline Phosphatase 179 U/L (40-110); Anion Gap 17 mmol/L (10-20); BUN (Urea Nitrogen) 13 mg/dL (8.4-25.7); Calc. Creatinine Clearance 71 mL/min (70-130); Carbon Dioxide 26 mmol/L (23-31); Estimated GFR-MDRD 56; Globulin 3.5 g/dL (2.4-3.5); Glucose 151 mg/dL (83-110); Potassium 4.4 mmol/L (3.5-5.1); Protein, Total 6.7 g/dL (5.8-8.1); Sodium 137 mmol/L (136-145)
[2020-05-15 09:43] LABS: Chloride 98 mmol/L (98-107)
--- NOTE | 2020-05-15 10:02 | PRG ---
DATE OF SERVICE: 05/15/2020 SUBJECTIVE: The patient said he is doing better with his walking. He is walking further. He is doing a little better with his transfers, still needs assistance with the transfers. He says when he is without the oxygen he feels just a little winded. His supplemental oxygen has been down to just 1 L. The patient said that prior to his hospitalization, he was receiving furosemide 40 mg. This he has not been receiving while in the hospital. He was also on aspirin 1 a day. Both of these will be restarted. We will x-ray to be sure the lungs remain clear. The patient said he has not had a bowel movement in several days. He thinks probably it has been about 8 days. OBJECTIVE: GENERAL: The patient is walking with physical therapy. He is standing, holding on to his walker, looks very stable, appears in no distress. VITAL SIGNS: His vital signs show a temperature of 98, pulse 72, respirations 20, O2 saturation 94% on 1 L, blood pressure 162/89. His weight is 213. Admission weight here was 214. LUNGS: Clear. HEART: Regular rate. EXTREMITIES: No edema. LABORATORY DATA: His FBS this morning was 125, at bedtime 153 and before supper yesterday 122. ASSESSMENT: 1. Generalized weakness and gait abnormality. a. Following surgery on his lumbar spine for spinal stenosis. b. Improving. Walking further and transferring a little better. 2. Diabetes type 2 that was out of control on admission with hemoglobin A1c of 14 on 05/06. a. Improving on basal dose of Lantus and preprandial Humalog. 3. Hospitalized at [facility] from 05/06 to 05/09 for disk herniation at the L2-3 level causing spinal stenosis with a right-sided L3 radiculopathy, which he underwent decompressive surgery and fusion at the L4-5 level. Also, was hospitalized for diabetes out of control. 4. Nonischemic cardiomyopathy. a. Ejection fraction 25-30% on echocardiogram on 06/23/2019. b. No evidence of acute failure as of 05/15. 5. Paroxysmal atrial fibrillation, on anticoagulant with Eliquis stopped in September of 2019 due to the significant gastrointestinal bleed. 6. Pulmonary embolism in June 2019. a. Treated with Eliquis, stopped September of 2019 due to significant gastrointestinal bleed. 7. Hyperlipidemia. 8. Hypertension. 9. Cigarette abuse. Remains off cigarettes during this hospitalization. 10. Alcohol abuse. Has been off alcohol since his admission. 11. Indwelling Lofton catheter. 12. Chronic obstructive pulmonary disease. PLAN: The patient is doing better. We will restart his furosemide. We will x- ray him this morning. Restart his furosemide. If the x-ray looks okay, we will probably pull the catheter. Continue PT and OT. For the constipation, we will continue the MiraLAX and will add Ching Mccarthy Job ID: [id number] [facility]TDD
[2020-05-15] MEDS: traMADol HCl 50 MG TAB PO PRN ×2 (15:20→21:21)
[2020-05-15] MEDS: Fluconazole 100 MG TAB PO SCH (15:20)
[2020-05-15] MEDS: tiZANidine HCl 4 MG TAB PO PRN ×2 (15:26→21:18)
[2020-05-15] MEDS: Atorvastatin Calcium 40 MG TAB PO SCH (21:18)
[2020-05-15] MEDS: Nicotine 21 MG PATCH TOP SCH (21:19)
[2020-05-16 06:04] LABS: Band 1 % (5-11); Eosinophils 6 % (0-10); Hemoglobin 10.4 g/dL (14.0-18.0); Lymphocytes 10 % (21-51); MDiff Complete? YES; Mean Corpuscular HGB CONC 32.4 g/dL (32.0-36.0); Mean Corpuscular Hemoglobin 30.1 pg (27.0-31.0); Mean Corpuscular Volume 92.8 fL (78.0-98.0); Mean Platelet Volume 8.1 fL (7.4-10.4); Monocytes 6 % (0-10); Neutrophil 77 % (42-75); Platelet Count 265 thou/uL (130-400); Platelet Morphology Comment Appears Adequate; RBC Distribution Width 12.1 % (11.5-14.5); RBC Morphology Normal; Red Blood Cell (RBC) Count 3.44 mill/uL (4.70-6.10); White Blood Cell (WBC) Count 4.9 thou/uL (4.8-10.8)
[2020-05-16] MEDS: Carvedilol 3.125 MG TAB PO SCH ×2 (08:21→20:01)
[2020-05-16] MEDS: Senokot S 8.6-50 MG TAB PO SCH ×2 (08:21→20:01)
[2020-05-16] MEDS: Gabapentin 300 MG CAP PO SCH ×3 (08:21→20:00)
[2020-05-16] MEDS: Aspirin 81 mg Enteric Coated Tablet PO SCH (08:21)
[2020-05-16] MEDS: Furosemide 40 MG TAB PO SCH (08:21)
[2020-05-16] MEDS: HumaLOG 300 UNITS/3 ML VIAL SC SCH ×3 (08:22→17:08)
[2020-05-16] MEDS: Polyethylene Glycol 3350 17 GM Packet PO SCH (08:22)
[2020-05-16] MEDS: Clotrimazole 1% Cream 15 GM TUBE TOP SCH ×2 (08:22→20:29)
[2020-05-16] MEDS: tiZANidine HCl 4 MG TAB PO PRN ×2 (13:24→19:59)
[2020-05-16] MEDS: traMADol HCl 50 MG TAB PO PRN (13:24)
[2020-05-16] MEDS: Fluconazole 100 MG TAB PO SCH (13:26)
[2020-05-16] MEDS: Nicotine 21 MG PATCH TOP SCH (20:00)
[2020-05-16] MEDS: Atorvastatin Calcium 40 MG TAB PO SCH (20:01)
[2020-05-16] MEDS: Lantus 1000 UNITS/10 ML VIAL SC SCH (20:28)
[2020-05-17] MEDS: traMADol HCl 50 MG TAB PO PRN (03:02)
[2020-05-17] MEDS: Aspirin 81 mg Enteric Coated Tablet PO SCH (07:52)
[2020-05-17] MEDS: tiZANidine HCl 4 MG TAB PO PRN ×3 (07:52→21:55)
[2020-05-17] MEDS: Senokot S 8.6-50 MG TAB PO SCH ×2 (07:52→20:44)
[2020-05-17] MEDS: Furosemide 40 MG TAB PO SCH (07:53)
[2020-05-17] MEDS: Gabapentin 300 MG CAP PO SCH ×3 (07:53→20:44)
[2020-05-17] MEDS: Carvedilol 3.125 MG TAB PO SCH ×2 (07:53→20:44)
[2020-05-17] MEDS: Polyethylene Glycol 3350 17 GM Packet PO SCH (07:54)
[2020-05-17] MEDS: HumaLOG 300 UNITS/3 ML VIAL SC SCH ×3 (09:41→18:09)
[2020-05-17] MEDS: Clotrimazole 1% Cream 15 GM TUBE TOP SCH ×2 (09:47→20:45)
[2020-05-17] MEDS: Lantus 1000 UNITS/10 ML VIAL SC SCH (20:43)
[2020-05-17] MEDS: Atorvastatin Calcium 40 MG TAB PO SCH (20:44)
[2020-05-17] MEDS: Nicotine 21 MG PATCH TOP SCH (20:44)
--- NOTE | 2020-05-18 06:04 | PRG ---
DATE OF SERVICE: 05/17/2020 SUBJECTIVE: The patient said he is doing all right this morning. He said he is having no trouble breathing. He has a little chronic cough, but he does not spit anything up. He is not short of breath. He has been back on his furosemide. His recent chest x-ray showed the chronic cardiomegaly and some mild pulmonary vascular congestion, but no effusion. He has been back on his Lasix and had excellent urinary output. He said he did not rest as well last night because his back was a little sore. He is doing better with therapy. He is doing better with his transfers. OBJECTIVE: GENERAL: The patient is lying in bed, alert, moving in bed without any assistance. Appears in no distress. VITAL SIGNS: Shows a temperature 98, pulse 67, respirations 18, O2 saturation 97% on 2 L, blood pressure 168/96. LUNGS: Clear. There is no wheezing or rhonchi nor rales. HEART: Regular rate. SKIN: Incision on the back is healing well. [place] are present. EXTREMITIES: No edema. LABORATORY DATA: His H and H yesterday were 10.4 and 31.9, white cell count 4900 with 77% segs, 1% band, 10% lymphocytes, platelet count 265,000. His FBS this morning was 153, at bedtime was 88. ASSESSMENT: 1. Generalized weakness and gait abnormality. a. Following surgery on his lumbar spine for spinal stenosis. b. Improving. Walking further and transferring better as of 05/17. 2. Diabetes type 2 that was out of control on admission for his back surgery. Hemoglobin A1c of 14 and FBS of 600 on 05/06. a. Improving and showing good control with the basal dose of Lantus and preprandial Humalog. 3. Hospitalized at [facility] from 05/06 to 05/09 for a disk herniation at the L2-3 level with spinal stenosis and right-sided L3 radiculopathy for which he underwent decompressive surgery and fusion at L4-5 level. Also hospitalized for diabetes out of control. 4. Nonischemic cardiomyopathy. a. Ejection fraction 25% to 30% on echocardiogram on 06/23/2019. b. No evidence of acute failure as of 05/17. 5. Paroxysmal atrial fibrillation. a. Had been on anticoagulants with Eliquis that was stopped in September 2019 due to significant GI bleed. 6. Pulmonary embolism, June 2019, treated with Eliquis that was stopped in September of 2019 due to significant GI bleed. 7. Hyperlipidemia. 8. Hypertension. 9. Cigarette abuse, remains off cigarettes. 10. Alcohol abuse, remains off alcohol since admission. 11. Chronic obstructive pulmonary disease. 12. Indwelling Lofton catheter. PLAN: The patient is doing better. He is making continued improvement with his strength. We will try again tapering the O2, discontinue the Lofton catheter. Job ID: [id number] [facility]
[2020-05-18] MEDS: traMADol HCl 50 MG TAB PO PRN ×3 (07:53→19:38)
[2020-05-18] MEDS: Furosemide 40 MG TAB PO SCH (08:41)
[2020-05-18] MEDS: Carvedilol 3.125 MG TAB PO SCH ×2 (08:41→20:18)
[2020-05-18] MEDS: Polyethylene Glycol 3350 17 GM Packet PO SCH (08:41)
[2020-05-18] MEDS: Aspirin 81 mg Enteric Coated Tablet PO SCH (08:41)
[2020-05-18] MEDS: Senokot S 8.6-50 MG TAB PO SCH ×2 (08:41→20:18)
[2020-05-18] MEDS: Gabapentin 300 MG CAP PO SCH ×3 (08:42→20:18)
[2020-05-18] MEDS: Clotrimazole 1% Cream 15 GM TUBE TOP SCH ×2 (08:42→20:19)
[2020-05-18] MEDS: HumaLOG 300 UNITS/3 ML VIAL SC SCH ×3 (08:42→17:16)
[2020-05-18] MEDS: tiZANidine HCl 4 MG TAB PO PRN ×2 (11:34→19:39)
[2020-05-18] MEDS: Lantus 1000 UNITS/10 ML VIAL SC SCH (20:17)
[2020-05-18] MEDS: Nicotine 21 MG PATCH TOP SCH (20:17)
[2020-05-18] MEDS: Atorvastatin Calcium 40 MG TAB PO SCH (20:18)
[2020-05-19] MEDS: HumaLOG 300 UNITS/3 ML VIAL SC SCH ×3 (07:35→16:46)
[2020-05-19] MEDS: Polyethylene Glycol 3350 17 GM Packet PO SCH (08:01)
[2020-05-19] MEDS: Aspirin 81 mg Enteric Coated Tablet PO SCH (08:01)
[2020-05-19] MEDS: Senokot S 8.6-50 MG TAB PO SCH ×2 (08:01→21:29)
[2020-05-19] MEDS: Gabapentin 300 MG CAP PO SCH ×3 (08:01→21:25)
[2020-05-19] MEDS: Carvedilol 3.125 MG TAB PO SCH ×2 (08:01→21:25)
[2020-05-19] MEDS: Furosemide 40 MG TAB PO SCH (08:01)
[2020-05-19] MEDS: Clotrimazole 1% Cream 15 GM TUBE TOP SCH ×2 (08:02→21:25)
--- NOTE | 2020-05-19 09:46 | PRG ---
DATE OF SERVICE: 05/19/2020 SUBJECTIVE: The patient is doing better. He is walking further. His transfers are better. He does not like to sit up in a chair for prolonged periods. His catheter was removed on 05/17, but he was not able to control his urination and was incontinent and then had requested that the catheter be placed back in. Catheter was replaced and I visited with him about this this morning and said that will need to try again to take this out and see how he does. OBJECTIVE: GENERAL: The patient just returning from physical therapy without his oxygen. His O2 saturation after walking on room air was 95%. He is alert, appears in no distress. VITAL SIGNS: His temperature is 98.6, pulse 75, respirations 18, and blood pressure 156/90. LUNGS: Clear. HEART: Regular rate. : His urinary output has been 2550, the day before 3800, and the day before that 3100. EXTREMITIES: Have no edema. ASSESSMENT: 1. Generalized weakness and gait abnormality. a. Following surgery on his lumbar spine for spinal stenosis. b. Improving. Walking further and transferring better as of 05/19. 2. Diabetes type 2 that was out of control on admission for his back surgery with a hemoglobin A1c of 14 and FBS of 600 on 05/06. a. Improving and showing good control with basal dose of Lantus and preprandial Humalog. 3. Hospitalized at [facility] from 05/06 through 05/09 for disk herniation at the L2-L3 level with spinal stenosis and right-sided L3 radiculopathy, for which he underwent a decompression procedure and fusion at L4-L5. Also hospitalized for the diabetes out of control. 4. Nonischemic cardiomyopathy. a. Ejection fraction 25% to 30% on echocardiogram on 06/23/2019. b. No evidence of acute failure as of 05/17. 5. Paroxysmal atrial fibrillation. a. Had been on anticoagulant with Eliquis, that was stopped in September of 2019 due to a significant gastrointestinal bleed. 6. Pulmonary embolism, June 2019, treated with Eliquis, that was stopped in September of 2019 due to significant gastrointestinal bleed. 7. Hyperlipidemia. 8. Hypertension. 9. Cigarette abuse, remains off cigarettes. 10. Alcohol abuse, remains off alcohol. 11. Chronic obstructive pulmonary disease. 12. Indwelling Lofton catheter, trialed removing this on 05/17, but the patient requested this be replaced that same day due to frequent urination and incontinence. PLAN: The patient is doing better. He is doing well on room air. The patient has had significant urinary output since he has been back on the Lasix. He probably had some fluid overload that is now balancing and diuresing, this has created the urinary frequency. We will probably leave the catheter in another day or two, then this will need to be removed. Job ID: [id number] [facility]
[2020-05-19] MEDS: traMADol HCl 50 MG TAB PO PRN ×2 (13:36→21:31)
[2020-05-19] MEDS: tiZANidine HCl 4 MG TAB PO PRN ×2 (13:37→21:30)
[2020-05-19] MEDS: Atorvastatin Calcium 40 MG TAB PO SCH (21:24)
[2020-05-19] MEDS: Lantus 1000 UNITS/10 ML VIAL SC SCH (21:26)
[2020-05-19] MEDS: Nicotine 21 MG PATCH TOP SCH (21:37)
[2020-05-20] MEDS: traMADol HCl 50 MG TAB PO PRN ×3 (05:29→17:40)
[2020-05-20] MEDS: tiZANidine HCl 4 MG TAB PO PRN ×3 (05:32→17:40)
[2020-05-20] MEDS: Clotrimazole 1% Cream 15 GM TUBE TOP SCH ×2 (08:08→21:37)
[2020-05-20] MEDS: Aspirin 81 mg Enteric Coated Tablet PO SCH (08:08)
[2020-05-20] MEDS: Furosemide 40 MG TAB PO SCH (08:08)
[2020-05-20] MEDS: Gabapentin 300 MG CAP PO SCH ×3 (08:08→21:38)
[2020-05-20] MEDS: Senokot S 8.6-50 MG TAB PO SCH ×2 (08:09→21:39)
[2020-05-20] MEDS: Carvedilol 3.125 MG TAB PO SCH ×2 (08:09→21:38)
[2020-05-20] MEDS: HumaLOG 300 UNITS/3 ML VIAL SC SCH ×3 (08:10→16:55)
[2020-05-20] MEDS: Polyethylene Glycol 3350 17 GM Packet PO SCH (08:11)
[2020-05-20] MEDS: Nicotine 21 MG PATCH TOP SCH (21:37)
[2020-05-20] MEDS: Atorvastatin Calcium 40 MG TAB PO SCH (21:38)
[2020-05-20] MEDS: Lantus 1000 UNITS/10 ML VIAL SC SCH (21:39)
[2020-05-21] MEDS: traMADol HCl 50 MG TAB PO PRN ×3 (07:42→19:28)
[2020-05-21] MEDS: tiZANidine HCl 4 MG TAB PO PRN ×3 (07:43→19:29)
[2020-05-21] MEDS: Aspirin 81 mg Enteric Coated Tablet PO SCH (08:11)
[2020-05-21] MEDS: Gabapentin 300 MG CAP PO SCH ×3 (08:11→20:19)
[2020-05-21] MEDS: Carvedilol 3.125 MG TAB PO SCH ×2 (08:11→20:19)
[2020-05-21] MEDS: Senokot S 8.6-50 MG TAB PO SCH ×2 (08:12→20:19)
[2020-05-21] MEDS: Clotrimazole 1% Cream 15 GM TUBE TOP SCH ×2 (08:12→20:20)
[2020-05-21] MEDS: Furosemide 40 MG TAB PO SCH (08:12)
[2020-05-21] MEDS: HumaLOG 300 UNITS/3 ML VIAL SC SCH ×3 (08:12→17:00)
[2020-05-21] MEDS: Polyethylene Glycol 3350 17 GM Packet PO SCH (08:12)
[2020-05-21] MEDS ORDERED: tiZANidine HCl 4 MG TAB PO SCH (12:30)
[2020-05-21] MEDS ORDERED: traMADol HCl 50 MG TAB PO SCH (12:30)
[2020-05-21] MEDS: Lantus 1000 UNITS/10 ML VIAL SC SCH (20:17)
[2020-05-21] MEDS: Nicotine 21 MG PATCH TOP SCH (20:19)
[2020-05-21] MEDS: Atorvastatin Calcium 40 MG TAB PO SCH (20:19)
[2020-05-22] MEDS: tiZANidine HCl 4 MG TAB PO PRN ×4 (03:02→21:22)
[2020-05-22] MEDS: traMADol HCl 50 MG TAB PO PRN ×4 (03:02→21:21)
--- NOTE | 2020-05-22 07:12 | PRG ---
DATE OF SERVICE: 05/20/2020 SUBJECTIVE: The patient says he is doing better. He is getting up and down a little easier. His back is feeling better. His breathing is doing good. He has been off the oxygen. He still has the Lofton catheter. He is not yet wanting to get rid of this. He says that he has to go too often and will be incontinent of urine. He says he has trouble with urinary frequency at home also. OBJECTIVE: GENERAL: The patient is alert, appears comfortable, in no distress. VITAL SIGNS: Show a temperature of 98.6, pulse 61, respirations 18, O2 saturation 96% on room air, blood pressure 138/81. LUNGS: Clear. HEART: Regular rate. EXTREMITIES: No edema. ASSESSMENT: 1. Generalized weakness and gait abnormality. a. Following surgery on his lumbar spine for spinal stenosis. b. Improving. Walking further, transferring better as of 05/20. 2. Diabetes type 2 that was out of control on admission for his back surgery with a hemoglobin A1c of 14 and an FBS of 600 on 05/06. a. Improved and showing good control with basal dose of Lantus and preprandial Humalog. 3. Hospitalized at [facility] from 05/06 through 05/09 for disk herniation at L2-L3 level with spinal stenosis and a right-sided L3 radiculopathy for which he underwent a decompressive procedure and fusion at L4-L5. Also, hospitalized for diabetes out of control. 4. Nonischemic cardiomyopathy. a. Ejection fraction 25% to 30% on echocardiogram on 06/23/2019. b. No evidence of acute failure as of 05/20. 5. Paroxysmal atrial fibrillation. a. Had been on Eliquis, stopped in September of 2019 due to significant GI. 6. History of pulmonary embolism in June 2019. The Eliquis was stopped in September of 2019, due to significant GI bleed. 7. Hypertension. 8. Cigarette abuse, remains off cigarettes. 9. Alcohol abuse, remains off alcohol. 10. Chronic obstructive pulmonary disease. 11. Indwelling Lofton catheter. That is in because of his urinary frequency and large volume urinary output. The patient not yet wanting to go without this as of 05/2020. PLAN: Continue present care. Continue PT and OT. We will try removal of catheter tomorrow, give him one more day of strengthening and give him more time to get to the bathroom. He will also have a urinal at the bedside to use. His FBS this morning was 181. FBS yesterday morning before breakfast, 150. Job ID: [id number] [facility]
[2020-05-22] MEDS: Polyethylene Glycol 3350 17 GM Packet PO SCH (09:09)
[2020-05-22] MEDS: Carvedilol 3.125 MG TAB PO SCH ×2 (09:10→21:11)
[2020-05-22] MEDS: Gabapentin 300 MG CAP PO SCH ×3 (09:10→21:13)
[2020-05-22] MEDS: HumaLOG 300 UNITS/3 ML VIAL SC SCH ×3 (09:10→17:08)
[2020-05-22] MEDS: Furosemide 40 MG TAB PO SCH (09:10)
[2020-05-22] MEDS: Senokot S 8.6-50 MG TAB PO SCH ×2 (09:10→21:11)
[2020-05-22] MEDS: Aspirin 81 mg Enteric Coated Tablet PO SCH (09:10)
[2020-05-22] MEDS: Clotrimazole 1% Cream 15 GM TUBE TOP SCH ×2 (09:11→21:12)
[2020-05-22 09:23] VITALS: BMI 27.4
[2020-05-22] MEDS: Oxybutynin 5 MG TAB PO SCH ×2 (09:46→21:11)
[2020-05-22 12:00] LABS: Bilirubin Negative (Negative); Blood, Urine Small (Negative); Clarity Slightly Cloudy (Clear); Glucose, Urine (Dipstick) Negative (Negative); Ketone, Urine Negative (Negative); Leukocyte Large (Negative); Nitrite Negative (Negative); Protein, Urine (Dipstick) 30 mg/dL (Neg-Trace); pH, Urine 6.5 (5.0-9.0)
[2020-05-22 12:10] LABS: Bacteria/HPF 2+ HPF (None Seen); RBC/HPF 0-3 HPF (0-3); Squamous Epithelial 0-3 HPF (0-3)
[2020-05-22] MEDS: Atorvastatin Calcium 40 MG TAB PO SCH (21:10)
[2020-05-22] MEDS: Nicotine 21 MG PATCH TOP SCH (21:11)
[2020-05-22] MEDS: Lantus 1000 UNITS/10 ML VIAL SC SCH (21:28)
--- NOTE | 2020-05-23 05:18 | PRG ---
DATE OF SERVICE: 05/22/2020 SUBJECTIVE: The patient said he had more pain in his back yesterday. It was primarily in the right posterior iliac crest region, not in the incisional area. He is not yet ready to give up his catheter. He says he just has to urinate every hour. He has a lot of urgency. This was present even prior to his hospitalization. We will try him on oxybutynin. We will also check urine to be sure there is no infection. He is doing better with his therapy. OBJECTIVE: GENERAL: The patient is sitting on the edge of the bed. He is alert, appears in no distress. VITAL SIGNS: His temperature is 97.7, pulse 67, respirations 18, O2 saturation 97% on room air, blood pressure 169/98. LUNGS: Clear. HEART: Regular rate. SKIN: Incision healing well. [place] are present. There is just a little bit of a dried serous drainage on midportion of his dressing. EXTREMITIES: No edema. LABORATORY DATA: His FBS this morning was 139, before supper was 137. ASSESSMENT: 1. Generalized weakness and gait abnormality. a. Following surgery on his lumbar spine for spinal stenosis. b. Improving. Walking further and transferring better as of 05/22. 2. Diabetes type 2 that was out of control on admission for his back surgery with a hemoglobin A1c of 14. FBS of 600 on 05/06. a. Improved showing good control with basal insulin with Lantus and preprandial insulin with Humalog. 3. Hospitalized at [facility] from 05/06 through 05/09 for disk herniation at L2-3 level with spinal stenosis and right-sided L3 radiculopathy for which he underwent a decompressive procedure and fusion at L4-5. Also, hospitalized for diabetes out of control. 4. Nonischemic cardiomyopathy. a. Ejection fraction 25% to 30% on echocardiogram on 06/23/2019. b. No evidence of acute failure as of 05/22. 5. Paroxysmal atrial fibrillation. a. Had been on Eliquis, stopped in September 2019 due to significant GI bleed. 6. History of pulmonary embolism in June 2019. The Eliquis stopped in September 2019 due to significant GI bleed. 7. Hypertension. 8. Cigarette abuse. Remains off cigarettes during his hospital stay. 9. Alcohol abuse. Remains off alcohol. 10. Chronic obstructive pulmonary disease. 11. Urinary frequency and urgency, chronic. a. Does not want to have his catheter removed yet due to the symptoms. PLAN: Continue PT and OT. We will check a UA. We will try the patient on oxybutynin. I have told him that soon we will need to try to take out the catheter. Job ID: [id number] [facility]
[2020-05-23] MEDS: traMADol HCl 50 MG TAB PO PRN ×3 (05:25→19:52)
[2020-05-23] MEDS: tiZANidine HCl 4 MG TAB PO PRN ×3 (05:25→19:53)
[2020-05-23] MEDS: Furosemide 40 MG TAB PO SCH (08:12)
[2020-05-23] MEDS: Senokot S 8.6-50 MG TAB PO SCH ×2 (08:12→19:47)
[2020-05-23] MEDS: Polyethylene Glycol 3350 17 GM Packet PO SCH (08:12)
[2020-05-23] MEDS: HumaLOG 300 UNITS/3 ML VIAL SC SCH ×3 (08:12→16:57)
[2020-05-23] MEDS: Carvedilol 3.125 MG TAB PO SCH ×2 (08:12→19:47)
[2020-05-23] MEDS: Gabapentin 300 MG CAP PO SCH ×3 (08:12→19:47)
[2020-05-23] MEDS: Aspirin 81 mg Enteric Coated Tablet PO SCH (08:12)
[2020-05-23] MEDS: Oxybutynin 5 MG TAB PO SCH ×2 (08:12→19:47)
[2020-05-23] MEDS: Clotrimazole 1% Cream 15 GM TUBE TOP SCH ×2 (08:14→19:48)
[2020-05-23] MEDS: Cefdinir 300 MG CAP PO SCH (19:47)
[2020-05-23] MEDS: Atorvastatin Calcium 40 MG TAB PO SCH (19:47)
[2020-05-23] MEDS: Nicotine 21 MG PATCH TOP SCH (19:48)
[2020-05-23] MEDS: Lantus 1000 UNITS/10 ML VIAL SC SCH (19:48)
[2020-05-24] MEDS: traMADol HCl 50 MG TAB PO PRN ×3 (05:05→17:17)
[2020-05-24] MEDS: tiZANidine HCl 4 MG TAB PO PRN ×3 (05:06→17:18)
[2020-05-24] MEDS: Carvedilol 3.125 MG TAB PO SCH ×2 (08:17→21:20)
[2020-05-24] MEDS: Oxybutynin 5 MG TAB PO SCH ×2 (08:17→21:26)
[2020-05-24] MEDS: Aspirin 81 mg Enteric Coated Tablet PO SCH (08:17)
[2020-05-24] MEDS: HumaLOG 300 UNITS/3 ML VIAL SC SCH ×3 (08:17→17:16)
[2020-05-24] MEDS: Cefdinir 300 MG CAP PO SCH ×2 (08:17→21:19)
[2020-05-24] MEDS: Furosemide 40 MG TAB PO SCH (08:18)
[2020-05-24] MEDS: Senokot S 8.6-50 MG TAB PO SCH ×2 (08:18→21:20)
[2020-05-24] MEDS: Gabapentin 300 MG CAP PO SCH ×3 (08:18→21:19)
[2020-05-24] MEDS: Polyethylene Glycol 3350 17 GM Packet PO SCH (08:18)
[2020-05-24] MEDS: Clotrimazole 1% Cream 15 GM TUBE TOP SCH ×2 (08:18→21:24)
--- NOTE | 2020-05-24 12:32 | PRG ---
DATE OF SERVICE: 05/23/2020 SUBJECTIVE: The patient said that he is doing okay today, still has a lot of pain in that right posterior iliac crest region, but not in the hip. His surgeon's office called and they are going to arrange a followup appointment. The patient was visiting about the insulin and the frequent checks and he said at home, he will not check a glucose four times a day, but would be willing to probably do it twice a day. The patient's strength is improving. He does not yet want to get rid of the catheter. Would like to give this just a little longer. OBJECTIVE: GENERAL: The patient is alert, appears comfortable, in no distress. VITAL SIGNS: His temp is 97.9, pulse 63, respirations 16, O2 saturation 95% on room air, blood pressure 160/92. LUNGS: Clear. HEART: Regular rate. LABORATORY DATA: FBS this morning 173. ASSESSMENT: 1. Generalized weakness and gait abnormality. a. Following surgery on his lumbar spine for spinal stenosis. b. Improving. Walking further and transferring better as of 05/23. 2. Diabetes type 2 that was out of control on admission for his back surgery with a hemoglobin A1c of 14 and FBS of 600 on 05/06. a. Improved with good control with basal insulin with Lantus and preprandial insulin with Humalog. 3. Hospitalized at [facility] from 05/06 to 05/09 for disk herniation at L2-3 level with spinal stenosis and right-sided L3 radiculopathy for which he underwent a decompressive procedure and fusion at the L4-5 level. Also, hospitalized for diabetes out of control. 4. Nonischemic cardiomyopathy. a. Ejection fraction 25% to 30% on echocardiogram of 06/23/2019. b. No evidence of acute failure as of 05/23. 5. Paroxysmal atrial fibrillation. a. Had been on Eliquis that was stopped in September of 2019 for significant GI bleed. 6. History of pulmonary embolism in June 2019. Eliquis stopped in September of 2019 due to significant GI bleed. 7. Hypertension. 8. Cigarette abuse. Remains off cigarettes during the hospital stay. 9. Alcohol abuse. Remains off alcohol. 10. Chronic obstructive pulmonary disease. 11. Urinary frequency and urgency, chronic. a. The patient has requested that the catheter stay a little longer. b. I have started him on oxybutynin. 12. Possible urinary tract infection. Urinalysis from 05/22 showed 11 to 20 wbc's, negative nitrite. PLAN: We will reduce the glucometer checks to twice today before breakfast and supper. We will culture the urine. Start the patient on Cipro 500 b.i.d. for 7 days. Will use a EPV SOLARmar pump for heat application over the right iliac crest. The patient will be scheduling to see his neurosurgeon and later we will also arrange for him to see urologist for the urinary frequency. In a few days, the catheter will have to come out. [facility] [id number] [facility]
[2020-05-24] MEDS: Lantus 1000 UNITS/10 ML VIAL SC SCH (21:15)
[2020-05-24] MEDS: Atorvastatin Calcium 40 MG TAB PO SCH (21:20)
[2020-05-24] MEDS: Nicotine 21 MG PATCH TOP SCH (21:24)
[2020-05-25] MEDS: traMADol HCl 50 MG TAB PO PRN ×4 (03:48→23:34)
[2020-05-25] MEDS: tiZANidine HCl 4 MG TAB PO PRN ×4 (03:48→23:34)
[2020-05-25] MEDS: HumaLOG 300 UNITS/3 ML VIAL SC SCH (08:32)
[2020-05-25] MEDS: Aspirin 81 mg Enteric Coated Tablet PO SCH (08:33)
[2020-05-25] MEDS: Gabapentin 300 MG CAP PO SCH ×3 (08:33→20:36)
[2020-05-25] MEDS: Senokot S 8.6-50 MG TAB PO SCH ×2 (08:33→20:36)
[2020-05-25] MEDS: Furosemide 40 MG TAB PO SCH (08:33)
[2020-05-25] MEDS: Carvedilol 3.125 MG TAB PO SCH ×2 (08:33→20:36)
[2020-05-25] MEDS: Oxybutynin 5 MG TAB PO SCH ×2 (08:33→20:36)
[2020-05-25] MEDS: Cefdinir 300 MG CAP PO SCH ×2 (08:33→20:36)
[2020-05-25] MEDS: Polyethylene Glycol 3350 17 GM Packet PO SCH (08:34)
[2020-05-25] MEDS: Clotrimazole 1% Cream 15 GM TUBE TOP SCH ×2 (08:35→20:37)
[2020-05-25 10:06] LABS: ALT (SGPT) 18 U/L (8-55); AST (SGOT) 31 U/L (5-34); Albumin 3.5 g/dL (3.4-4.8); Alkaline Phosphatase 140 U/L (40-110); Anion Gap 17 mmol/L (10-20); BUN (Urea Nitrogen) 22 mg/dL (8.4-25.7); Bilirubin, Total 0.5 mg/dL (0.2-1.2); Calc. Creatinine Clearance 70 mL/min (70-130); Calcium 9.7 mg/dL (7.8-10.44); Carbon Dioxide 27 mmol/L (23-31); Chloride 99 mmol/L (98-107); Estimated GFR-MDRD 55; Globulin 4.4 g/dL (2.4-3.5); Glucose 169 mg/dL (83-110); Potassium 4.5 mmol/L (3.5-5.1); Protein, Total 7.9 g/dL (5.8-8.1); Sodium 138 mmol/L (136-145)
[2020-05-25] MEDS: metFORMIN 500 MG TAB PO SCH (16:08)
[2020-05-25] MEDS: Lantus 1000 UNITS/10 ML VIAL SC SCH (20:35)
[2020-05-25] MEDS: Atorvastatin Calcium 40 MG TAB PO SCH (20:36)
[2020-05-25] MEDS: Nicotine 21 MG PATCH TOP SCH (20:36)
[2020-05-26 06:08] LABS: Hemoglobin 12.9 g/dL (14.0-18.0); Mean Corpuscular HGB CONC 32.3 g/dL (32.0-36.0); Mean Corpuscular Hemoglobin 30.4 pg (27.0-31.0); Mean Corpuscular Volume 94.1 fL (78.0-98.0); Mean Platelet Volume 7.6 fL (7.4-10.4); Platelet Count 292 thou/uL (130-400); RBC Distribution Width 11.6 % (11.5-14.5); Red Blood Cell (RBC) Count 4.24 mill/uL (4.70-6.10); White Blood Cell (WBC) Count 7.5 thou/uL (4.8-10.8)
[2020-05-26 06:23] LABS: Band 2 % (5-11); Lymphocytes 24 % (21-51); MDiff Complete? YES; Manual Diff?? YES; Monocytes 10 % (0-10); Neutrophil 64 % (42-75)
[2020-05-26 06:24] LABS: Eosinophils 2 % (0-10); Platelet Morphology Comment Appears Adequate; RBC Morphology Normal
--- NOTE | 2020-05-26 06:27 | PRG ---
DATE OF SERVICE: 05/25/2020 SUBJECTIVE: The patient said that he has had some spasms in his low back. Otherwise, he thinks he is doing all right. He has been able to get up and around better. He is not having any breathing difficulty. He still has his Lofton catheter. The patient said that when he goes home, he will not take the frequent insulin doses, will not take the Humalog. He will not check his blood sugar frequently. He wants to try oral medication and is very insistent upon this. OBJECTIVE: GENERAL: The patient is alert, appears comfortable, in no distress. VITAL SIGNS: Show a temperature of 97.5, pulse 80, respirations 20, O2 saturation 95% on room air, blood pressure 179/90. LUNGS: Clear. HEART: Regular rate. EXTREMITIES: No edema. LABORATORY DATA: FBS pending. ASSESSMENT: 1. Generalized weakness and gait abnormality. a. Following surgery on his lumbar spine for spinal stenosis. b. Improving. Walking further and transferring better as of 05/25. 2. Diabetes type 2 that was out of control on admission for his back surgery with a hemoglobin A1c of 14 and fasting blood sugar of 600 on 05/06. a. Control improved on a basal insulin with Lantus and preprandial insulin with insulin. The patient is refusing to stay on this regimen. He will not check his home glucometers this often nor use the Humalog, but willing to try on oral medicine. 3. Hospitalized at [facility] from 05/06 to 05/09 for disk herniation at the L2-3 level with spinal stenosis and right-sided L3 radiculopathy for which he underwent a decompressive procedure and fusion at the L4-5 level, also hospitalized for diabetes out of control. 4. Nonischemic cardiomyopathy. a. Ejection fraction 25% to 30% on echocardiogram on 06/23/19. b. No evidence of acute failure on 05/23. 5. Paroxysmal atrial fibrillation, had been on Eliquis that was stopped in September of 2019 for significant GI bleed. 6. History of pulmonary embolism in June 2019. Eliquis stopped in September 2019 due to significant GI bleed. 7. Hypertension. 8. Cigarette abuse, has remained off cigarettes while hospitalized. 9. History of alcohol abuse. Remains off alcohol while hospitalized. 10. Chronic obstructive pulmonary disease. 11. Urinary frequency and urgency, chronic. The patient has requested catheter stay in until he is a little stronger. 12. Possible urinary tract infection. PLAN: We will discontinue the Humalog. We will check glucometers only once a day, start him on Lantus 1000 mg b.i.d. His urine culture grew Enterobacter cloacae that is sensitive to the cephalosporins except for cefoxitin. We will continue the cefdinir. Job ID: [id number] [facility]
[2020-05-26] MEDS: Aspirin 81 mg Enteric Coated Tablet PO SCH (08:06)
[2020-05-26] MEDS: Carvedilol 3.125 MG TAB PO SCH ×2 (08:06→19:41)
[2020-05-26] MEDS: metFORMIN 500 MG TAB PO SCH ×2 (08:06→16:56)
[2020-05-26] MEDS: tiZANidine HCl 4 MG TAB PO PRN ×3 (08:07→19:43)
[2020-05-26] MEDS: Senokot S 8.6-50 MG TAB PO SCH ×2 (08:07→19:41)
[2020-05-26] MEDS: Oxybutynin 5 MG TAB PO SCH ×2 (08:07→19:41)
[2020-05-26] MEDS: Furosemide 40 MG TAB PO SCH (08:07)
[2020-05-26] MEDS: Cefdinir 300 MG CAP PO SCH ×2 (08:07→19:41)
[2020-05-26] MEDS: Gabapentin 300 MG CAP PO SCH ×3 (08:07→19:41)
[2020-05-26] MEDS: traMADol HCl 50 MG TAB PO PRN ×3 (08:08→19:43)
[2020-05-26] MEDS: Clotrimazole 1% Cream 15 GM TUBE TOP SCH ×2 (08:11→19:42)
[2020-05-26] MEDS: Polyethylene Glycol 3350 17 GM Packet PO SCH (08:12)
--- NOTE | 2020-05-26 11:02 | PRG ---
DATE OF SERVICE: 05/26/2020 SUBJECTIVE: The patient said he is doing okay this morning. He is not short of breath. OBJECTIVE: GENERAL: The patient is alert, appears in no distress. VITAL SIGNS: His temperature is 98, pulse 60, respirations 18, O2 saturation 96% on room air, blood pressure 175/97. LUNGS: Clear. HEART: Regular rate. MUSCULOSKELETAL: Incision in the lumbar spine is healing well. There are still adam present that will be removed today. EXTREMITIES: No edema. LABORATORY DATA: His lab shows H and H are up to 12.9 and 39.9, white blood cell count 7500, 64% segs, 24% lymphocytes, platelet count 292. His glucose 138, potassium 4.5, BUN 22, creatinine 1.28, GFR 55, FBS 169, bedside glucose was 165, alkaline phosphatase 140, albumin 3.5. ASSESSMENT: 1. Generalized weakness and gait abnormality. a. Following surgery on the lumbar spine for spinal stenosis. b. Improving. Walking further and transferring better as of 05/26. 2. Diabetes type 2 that was out of control on admission for his back surgery with a hemoglobin A1c of 14 and a fasting glucose of 600 on 05/06. a. Control was improved on basal insulin with Lantus and preprandial insulin with Humalog. The patient says he will not use this regimen at home, agreeable to trying metformin and one dose of Lantus. This was started on 05/25/20. b. FBS 165 on 05/26. 3. Hospitalized at [facility] from 05/06 until 05/09 for disk herniation at the L2-L3 level with spinal stenosis and a right-sided L3 radiculopathy, for which, he underwent a decompressive procedure and fusion at L4-L5 level. He also was hospitalized for diabetes out of control. 4. Nonischemic cardiomyopathy. a. Ejection fraction 25% to 30% on echocardiogram of 06/23/2019. b. No evidence of acute failure as of 05/26. 5. Paroxysmal atrial fibrillation. a. Had been on Eliquis, but stopped in September of 2019 due to significant GI bleed. 6. History of pulmonary embolism in June 2019, for which he was on Eliquis that was stopped September 2019 due to significant GI bleed. 7. Hypertension. 8. Cigarette abuse, has remained off cigarettes while hospitalized. 9. History of alcohol abuse, has remained off the alcohol during hospitalization. 10. Chronic obstructive pulmonary disease. 11. Urinary frequency and urgency, chronic. a. The patient has requested that his Lofton catheter has remained in postop, but agreeable to having this removed as of 05/26. 12. Urinary tract infection with Enterobacter cloacae sensitive to the cephalosporins. PLAN: Continue present medicines. Remove skin adam from his incision in his back. I will discontinue Lofton catheter. Continue PT, OT, and anticipate discharge later this week. Job ID: [id number] [facility]
[2020-05-26] MEDS: Atorvastatin Calcium 40 MG TAB PO SCH (19:41)
[2020-05-26] MEDS: Nicotine 21 MG PATCH TOP SCH (19:43)
[2020-05-26] MEDS: Lantus 1000 UNITS/10 ML VIAL SC SCH (19:43)
[2020-05-27] MEDS: tiZANidine HCl 4 MG TAB PO PRN ×3 (05:17→20:25)
[2020-05-27] MEDS: traMADol HCl 50 MG TAB PO PRN ×3 (05:17→20:25)
[2020-05-27] MEDS: metFORMIN 500 MG TAB PO SCH ×2 (09:27→17:29)
[2020-05-27] MEDS: Polyethylene Glycol 3350 17 GM Packet PO SCH (09:27)
[2020-05-27] MEDS: Cefdinir 300 MG CAP PO SCH ×2 (09:27→20:25)
[2020-05-27] MEDS: Aspirin 81 mg Enteric Coated Tablet PO SCH (09:27)
[2020-05-27] MEDS: Clotrimazole 1% Cream 15 GM TUBE TOP SCH ×2 (09:28→20:26)
[2020-05-27] MEDS: Furosemide 40 MG TAB PO SCH (09:28)
[2020-05-27] MEDS: Senokot S 8.6-50 MG TAB PO SCH ×2 (09:28→20:25)
[2020-05-27] MEDS: Gabapentin 300 MG CAP PO SCH ×3 (09:28→20:24)
[2020-05-27] MEDS: Carvedilol 3.125 MG TAB PO SCH ×2 (09:28→20:26)
--- NOTE | 2020-05-27 10:30 | PRG ---
DATE OF SERVICE: 05/27/2020 SUBJECTIVE: The patient rested pretty well last night. His catheter was removed yesterday, but he had to urinate frequently in small amounts. Early this morning, he voided and still felt like he was full and could not urinate anymore. Bladder scan was done and showed over 400 mL remaining. Catheter was reinserted and the patient said he had 500 mL residual. The catheter has been left in for the urinary retention. Skin adam were removed yesterday. OBJECTIVE: GENERAL: The patient is alert, working with physical therapy, appears comfortable, in no distress. VITAL SIGNS: His temp is 97.7, pulse 61, respirations 18, O2 saturation 96% on room air, blood pressure 149/86. LUNGS: Clear. HEART: Regular rate. EXTREMITIES: No edema. LABORATORY DATA: His FBS this morning was 148. ASSESSMENT: 1. Generalized weakness and gait abnormality. a. Following surgery on the lumbar spine for spinal stenosis. b. Improving. Walking further and transferring better as of 05/27. 2. Diabetes type 2, that was out of control on admission for his back surgery with a hemoglobin A1c of 14 and fasting glucose of 600 on 05/06. a. Controlled, much improved. The patient though did not want to take the preprandial insulin. Consequently, I have the patient on Lantus and metformin. FBS this morning was 148. 3. Hospitalized at [facility] from 05/06 until 05/09 for disk herniation at the L2-3 level with spinal stenosis and right-sided L3 radiculopathy, for which he underwent a decompressive procedure and fusion L4-5. Also, was hospitalized for diabetes out of control. 4. Nonischemic cardiomyopathy. a. An ejection fraction of 25% to 30% on echocardiogram of 06/23/2019. b. No evidence of acute CHF as of 05/27. 5. Paroxysmal atrial fib. a. Had been on Eliquis, that was stopped in September 2019 due to significant GI bleed. 6. History of pulmonary embolism in June 2019, for which he had been on Eliquis that was stopped due to significant GI bleed. 7. Hypertension. 8. Cigarette abuse, remains off cigarettes during this hospitalization. 9. History of alcohol abuse. Has remained off alcohol during this hospitalization. 10. Chronic obstructive pulmonary disease. 11. Urinary retention. a. Catheter removed on 05/26 and replaced on the morning of 05/27 due to incomplete emptying of bladder with a post residual volume of 500 mL. 12. Urinary tract infection with Enterobacter cloacae, for which he is on antibiotics. PLAN: We will leave in the Lofton catheter. We will stop the oxybutynin and place the patient on tamsulosin. Complete 7-day course of cefdinir for the UTI. After discharge, we will arrange for Urologic consultation for the urinary retention. We will target 05/30/2020 for discharge. Job ID: [id number] [facility]
[2020-05-27] MEDS: Atorvastatin Calcium 40 MG TAB PO SCH (20:25)
[2020-05-27] MEDS: Tamsulosin HCl 0.4 MG CAP PO SCH (20:25)
[2020-05-27] MEDS: Lantus 1000 UNITS/10 ML VIAL SC SCH (20:26)
[2020-05-27] MEDS: Nicotine 21 MG PATCH TOP SCH (20:26)
[2020-05-28] MEDS: tiZANidine HCl 4 MG TAB PO PRN ×2 (02:28→13:35)
[2020-05-28] MEDS: traMADol HCl 50 MG TAB PO PRN ×2 (02:28→13:35)
[2020-05-28] MEDS: Gabapentin 300 MG CAP PO SCH ×3 (09:14→21:14)
[2020-05-28] MEDS: Cefdinir 300 MG CAP PO SCH ×2 (09:14→21:15)
[2020-05-28] MEDS: Senokot S 8.6-50 MG TAB PO SCH ×2 (09:14→21:17)
[2020-05-28] MEDS: metFORMIN 500 MG TAB PO SCH ×2 (09:14→17:06)
[2020-05-28] MEDS: Furosemide 40 MG TAB PO SCH (09:15)
[2020-05-28] MEDS: Polyethylene Glycol 3350 17 GM Packet PO SCH (09:15)
[2020-05-28] MEDS: Clotrimazole 1% Cream 15 GM TUBE TOP SCH ×2 (09:15→20:55)
[2020-05-28] MEDS: Aspirin 81 mg Enteric Coated Tablet PO SCH (09:15)
[2020-05-28] MEDS: Carvedilol 3.125 MG TAB PO SCH ×2 (09:15→21:14)
--- NOTE | 2020-05-28 11:57 | PRG ---
DATE OF SERVICE: 05/28/2020 SUBJECTIVE: The patient said he is feeling pretty good today. He has been doing good with his therapy. The spasms in the right low back have gone away. He is doing better. He is not having any shortness of breath. A Lofton catheter was reinserted because of the urinary retention of 500 mL. OBJECTIVE: GENERAL: The patient is lying in bed, moves easily in bed, appears comfortable, in no distress. VITAL SIGNS: His temperature is 97.9, pulse 63, respirations 20, O2 saturation 97% on room air, and blood pressure 120/79. His weight has been 214. Weight yesterday was 193, which probably an error. LUNGS: Clear. HEART: Regular rate. EXTREMITIES: No edema. : The patient has a Lofton catheter. LABORATORY DATA: His FBS this morning was 177. ASSESSMENT: 1. Generalized weakness and gait abnormality. a. Following a surgery of the lumbar spine for spinal stenosis. b. Improving. Walking further. Transferring better as of 05/28. 2. Diabetes type 2 that was out of control on admission for his back surgery with a hemoglobin A1c of 14 and fasting blood sugar of 600 on 05/06. a. Controlled. Using Lantus and metformin, the patient did not want to use the preprandial insulin. FBS this morning 168 as of 05/28. 3. Hospitalized at [facility] from 05/06 until 05/09 for disk herniation at the L2-L3 level with spinal stenosis and right-sided L3 radiculopathy, for which he underwent a decompressive procedure, fusion at L4-L5. Also, was hospitalized for the diabetes [id number]. 4. Nonischemic cardiomyopathy. a. Ejection fraction of 25% to 30% on echocardiogram on 06/23/2019. b. No evidence of acute congestive heart failure as of 05/27. 5. Paroxysmal atrial fibrillation. a. Had been on Eliquis that was stopped on September 2019 due to significant gastrointestinal bleed. 6. History of pulmonary embolism June 2019, for which he had been on Eliquis that was stopped due to significant gastrointestinal bleed. 7. Hypertension. 8. Cigarette abuse, remains off cigarettes during this admission. 9. History of alcohol abuse, remains off the alcohol during this admission. 10. Chronic obstructive pulmonary disease. 11. Urinary retention. a. Catheter removed on 05/26. This had originally been placed postop and left in due to his urinary frequency at request. Catheter removed on 05/26 and the patient had incomplete emptying of the bladder, Postresidual bladder volume with catheterization 500 mL. Catheter has been left in since then. 12. Urinary tract infection, for which he is on antibiotics. PLAN: Continue present care. Arrange for urologic consultation. Continue PT and OT. Planning originally on discharge on , but the patient said it would work out better for him to go home on the afternoon of the , these arrangements will be made. Job ID: [id number] [facility]
[2020-05-28] MEDS ORDERED: Ondansetron ODT 4 MG TAB SL PRN (17:41)
[2020-05-28] MEDS ORDERED: Mag-Al Plus 1200 MG/1200 MG/120 MG/30 ML UDCUP PO PRN (17:42)
[2020-05-28] MEDS ORDERED: Ondansetron ODT 4 MG TAB SL SCH (19:00)
[2020-05-28] MEDS: Tamsulosin HCl 0.4 MG CAP PO SCH (21:17)
[2020-05-28] MEDS: Atorvastatin Calcium 40 MG TAB PO SCH (21:17)
[2020-05-28] MEDS: Lantus 1000 UNITS/10 ML VIAL SC SCH (21:23)
[2020-05-28] MEDS: Nicotine 21 MG PATCH TOP SCH (21:23)
[2020-05-28] MEDS ORDERED: Sodium Chloride 0.9% 1,000 ML IV SCH (21:45)
[2020-05-28 22:14] LABS: #Basophils 0.1 thou/uL (0.0-0.2); #Lymphocytes 0.4 thou/uL (1.20-3.40); #Monocytes 0.4 thou/uL (0.11-0.59); #Neutrophils 10.4 thou/uL (1.40-6.50); %Basophils 1.3 % (0.0-1.0); %Eosinophils 0.4 % (0.0-10.0); %Lymphocytes 3.1 % (21.0-51.0); %Monocytes 3.7 % (0.0-10.0); %Neutrophils 91.5 % (42.0-75.0); Hemoglobin 13.1 g/dL (14.0-18.0); Mean Corpuscular HGB CONC 32.4 g/dL (32.0-36.0); Mean Corpuscular Hemoglobin 30.4 pg (27.0-31.0); Mean Corpuscular Volume 93.9 fL (78.0-98.0); Platelet Count 279 thou/uL (130-400); RBC Distribution Width 11.9 % (11.5-14.5); Red Blood Cell (RBC) Count 4.32 mill/uL (4.70-6.10); White Blood Cell (WBC) Count 11.3 thou/uL (4.8-10.8)
--- NOTE | 2020-05-28 22:29 | RAD ---
AP CHEST: Date: 05/28/2020 HISTORY: Cough. COMPARISON: 05/15/2020. FINDINGS: Lungs appear clear of infiltrate. Heart size upper normal and stable. Vasculature upper normal and st able. No significant change from 05/15/2020. IMPRESSION: No evidence of acute infiltrate. POS: AGW
[2020-05-28 22:31] LABS: ALT (SGPT) 310 U/L (8-55); AST (SGOT) 619 U/L (5-34); Albumin 3.8 g/dL (3.4-4.8); Alkaline Phosphatase 749 U/L (40-110); Anion Gap 21 mmol/L (10-20); BUN (Urea Nitrogen) 38 mg/dL (8.4-25.7); Bilirubin, Total 4.1 mg/dL (0.2-1.2); CK (CPK) 35 U/L (30-200); Calc. Creatinine Clearance 45 mL/min (70-130); Calcium 9.7 mg/dL (7.8-10.44); Carbon Dioxide 25 mmol/L (23-31); Chloride 94 mmol/L (98-107); Estimated GFR-MDRD 37; Globulin 4.1 g/dL (2.4-3.5); Glucose 201 mg/dL (83-110); Potassium 5.2 mmol/L (3.5-5.1); Protein, Total 7.9 g/dL (5.8-8.1); Sodium 135 mmol/L (136-145); Troponin I 0.041 ng/mL (< 0.028)
[2020-05-28 22:50] LABS: Bilirubin Small (Negative); Blood, Urine Small (Negative); Clarity Slightly Cloudy (Clear); Glucose, Urine (Dipstick) Negative (Negative); Ketone, Urine 15 mg/dL (Negative); Leukocyte Small (Negative); Nitrite Positive (Negative); Protein, Urine (Dipstick) 100 mg/dL (Neg-Trace); Specific Gravity, Urine 1.025 (1.005-1.030)
[2020-05-28 22:56] LABS: Bacteria/HPF 4+ HPF (None Seen); Transitional Epithelial 0-3 HPF (None Seen)
[2020-05-28] MEDS ORDERED: Cefepime 2 GM in Sodium Chloride 0.9% 100 ML IVPB SCH (23:59)
[2020-05-29] MEDS ORDERED: Enoxaparin Sodium 60 MG/0.6 ML SYRINGE ONE (00:14)
[2020-05-29] MEDS ORDERED: Enoxaparin Sodium 30 MG/0.3 ML SYRINGE ONE (00:14)
[2020-05-29] MEDS ORDERED: Enoxaparin Sodium 100 MG/ML SYRINGE SC SCH (00:30)
[2020-05-29 00:44] VITALS: BP 99/64; TEMP 98.5
[2020-05-29 18:12] LABS: SARS-CoV-2 MS2 Positive; SARS-CoV-2 N Gene Negative; SARS-CoV-2 S Gene Negative; SARS-CoV-2 by NAA Not Detected (NotDetected); SARS-CoV-2 orf1ab Negative
--- NOTE | 2020-06-03 10:51 | DIS ---
DATE OF ADMISSION: 05/09/2020 DATE OF DISCHARGE: 05/29/2020 Admitted to [facility] on 05/09/2020 and transferred to [facility] in the late evening of 05/28/2020. FINAL DIAGNOSES: 1. Generalized weakness and gait abnormality. a. Following surgery of the lumbar spine for spinal stenosis, improved throughout hospitalization where he was walking very well and transferring better. 2. Diabetes type 2 that was out of control on admission for his back surgery with a hemoglobin A1c of 14 and fasting blood sugar 600 on 05/06. a. Controlled using Lantus and metformin. The patient did not want to use preprandial insulin. 3. Hospitalized at [facility] from 05/06 until 05/09 for disk herniation at the L2-3 level with spinal stenosis and right-sided L3 radiculopathy, for which he underwent a decompressive procedure and fusion at L4-L5. Also was hospitalized for diabetes out of control. 4. Nonischemic cardiomyopathy. a. Ejection fraction 25% to 30% on echocardiogram of 05/23/2019. 5. Acute cholecystitis, presenting with epigastric pain radiating through to the right subscapular area. Nausea and vomiting on the evening of 05/28/20. Lab showed bilirubin of 4.1, alkaline phos of 749 and liver enzymes elevated indicating possible choledocholithiasis. 6. Elevated troponin I of 0.04 on the evening of 05/28. 7. Elevated D-dimer of 2.72 with decrease in O2 saturation to 91% with history of PE. a. Patient given an initial dose of Lovenox 1 mg/kg for possible PE. 8. Chronic kidney disease with acute kidney injury. a. Admission creatinine 1.18 that increased to 1.80 on 05/28. 9. Paroxysmal atrial fibrillation. a. EKG showed atrial fibrillation with rate of 121 on the evening of 05/28. Rate increased secondary to acute illness. b. At the time of transfer, pulse dropped into the 80s. c. Had been on Eliquis, but stopped in September of 2019 due to significant GI bleed. 10. History of pulmonary embolism in 2019, for which he had been on Eliquis, but was stopped due to GI bleed. 11. Hypertension. 12. Cigarette abuse, has remained off cigarettes during this admission. 13. History of alcohol abuse. Remains off the alcohol during this admission. 14. Chronic obstructive pulmonary disease. 15. Urinary retention. a. Catheter removed on 05/26, originally been placed postop and left in place due to his urinary frequency and at his request. After removal, unable to empty bladder and had a 500 mL residual, catheter left in place. 16. Urinary tract infection, Enterobacter cloacae. SUMMARY: The patient is a 74-year-old white male with a history of a nonischemic cardiomyopathy; paroxysmal atrial fibrillation; diabetes, for which he had been under no medication or under any personal surveillance; chronic obstructive pulmonary disease; cigarette abuse; and alcohol abuse. The patient had a symptomatic herniation of the disk in the lumbar spine with spinal stenosis and a right-sided radiculopathy. He was hospitalized at [facility] from 05/06 to 05/09 for a disk herniation and spinal stenosis and underwent decompressive surgery at the L2-3 level and then a fusion at L4-L5 level. His diabetes was out of control with a hemoglobin A1c of 14 and a glucose of 600. He was transferred to [facility] on 05/09/20 with a catheter in place for purpose of continued control of his diabetes and for physical therapy and conditioning following his back surgery. He had been off the alcohol and tobacco since his admission and was doing fine from this accord. Initially, he was requiring supplemental O2, but gradually this was weaned, his lungs remained clear and he had O2 saturation of 95% on room air. He was having urinary frequency prior to his hospitalization and he wanted to keep the catheter that was placed postop. He did develop a UTI with Enterobacter cloacae, for which he was placed on cefdinir. The organism was sensitive to the third generation antibiotics. The patient made gradual progressive progress with his physical therapy, was eventually able to walk further and further and was able to transfer with minimal assistance. His incision over the lumbar spine was healing well. His sutures removed 3 weeks postop. The patient gradually improved. His pain seemed to be well controlled. Attempt was made to remove the catheter, but he had urinary frequency and was not able to completely empty the bladder. Bladder scanned over 400 mL residual. Catheter was placed and there was a 500 mL residual. Catheter was left in place. 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 On the evening of 05/28, he developed severe pain in the epigastrium that he said was just from his hiatal hernia. He had some vomiting with this and he said the pain radiated through to his back. He was given Zofran and later Phenergan with gradual resolution of the pain and of the vomiting. The patient though became weaker and he was chilled and had temp elevation of 99.4, his pulse went up to 116 and was irregular and his O2 saturation dropped from 95% to 91%. The patient was started on IV fluids. Blood and urine cultures were obtained. Lab studies showed a white cell count of 11,300 with 92% segs, hemoglobin 13.1. His D-dimer was elevated at 2.72. His glucose 201, BUN 38, creatinine was up to 1.8, total bilirubin 4.1, alkaline phosphatase 749, his AST was 619, ALT 310. Troponin I was elevated to 0.041 and CK 35. Blood and urine cultures were obtained. His urine just showed a few wbc's. His chest x-ray was clear. EKG showed atrial fibrillation with a rate of 121. The patient was started on cefepime and also a nasal swab was collected for COVID-19, results pending. The patient was felt to have acute cholecystitis and possible choledocholithiasis. Arrangements were made for his transfer to [facility]. I spoke with hospitalist, Dr. Gray, who accepted the patient in transfer. By the time he was transferred, his pulse had dropped into the 80s and he was feeling better. He was started on IV fluids at 75 mL/hour. The patient was given an initial dose of Lovenox 1 mg/kg subcu for possible pulmonary embolism. CTA of the lungs was not done due to his decline in renal function. At [facility], they can do ultrasound of the gallbladder and also they could do a ventilation perfusion scan to see if there is evidence of pulmonary embolism. The patient was discharged on the late evening of 05/28/2020. Job ID: [id number]
== END 2020-05-29 01:20 | disposition short-term general hospital (02) | DRG 948 ==
LOC: MADMS 18:12
PROVIDERS: ADMIT Family Medicine; ATTEND Family Medicine
DX: R53.1 Weakness (principal); I42.8 Other cardiomyopathies; N39.0 Urinary tract infection, site not specified; K80.00 Calculus of gallbladder with acute cholecystitis without obstruction; Z66 Do not resuscitate; I48.0 Paroxysmal atrial fibrillation; I25.10 Atherosclerotic heart disease of native coronary artery without angina pectoris; R39.15 Urgency of urination; R35.0 Frequency of micturition; F17.210 Nicotine dependence, cigarettes, uncomplicated; N18.9 Chronic kidney disease, unspecified; E78.5 Hyperlipidemia, unspecified; J44.9 Chronic obstructive pulmonary disease, unspecified; I12.9 Hypertensive chronic kidney disease with stage 1 through stage 4 chronic kidney disease, or unspecified chronic kidney disease; R26.9 Unspecified abnormalities of gait and mobility; E11.22 Type 2 diabetes mellitus with diabetic chronic kidney disease; F10.10 Alcohol abuse, uncomplicated; Z96.652 Presence of left artificial knee joint; Z79.899 Other long term (current) drug therapy; Z79.4 Long term (current) use of insulin; Z86.711 Personal history of pulmonary embolism; Z98.890 Other specified postprocedural states; Z88.8 Allergy status to other drugs, medicaments and biological substances; Z20.828 Contact with and (suspected) exposure to other viral communicable diseases; R77.8 Other specified abnormalities of plasma proteins
CPT/HCPCS: 36415; 36416; 71045; 71046; 80053; 81001; 82550; 82728; 83690; 84484; 85025; 85379; 86140; 87040; 87077; 87086; 87186; 87635; J0692; J1650; J1815; J3490; J7050; J7620; Q0162; Q0169; U0003

== ENCOUNTER 2020-10-10 16:05 | Outpatient (CLI) | payer MEDICARE | END 2020-10-10 16:06 | disposition home or self-care (01) | LOC: MADRAD 16:05 | PROVIDERS: ATTEND Neurological Surgery | DX: M47.26 Other spondylosis with radiculopathy, lumbar region (principal); Z98.890 Other specified postprocedural states | CPT/HCPCS: 72120 ==

== ENCOUNTER 2022-08-24 13:01 | Outpatient (CLI) | payer MEDICARE, OTHER | END 2022-08-24 13:02 | disposition home or self-care (01) | LOC: MADRAD 13:01 | PROVIDERS: ATTEND Neurological Surgery | DX: M47.26 Other spondylosis with radiculopathy, lumbar region (principal); M51.16 Intervertebral disc disorders with radiculopathy, lumbar region; M43.16 Spondylolisthesis, lumbar region; M25.78 Osteophyte, vertebrae; R93.7 Abnormal findings on diagnostic imaging of other parts of musculoskeletal system; Z98.890 Other specified postprocedural states | CPT/HCPCS: 72110 ==

== ENCOUNTER 2022-09-27 13:16 | Outpatient (CLI) | payer OTHER ==
[2022-09-27 13:57] LABS: ALT (SGPT) 15 U/L (8-55); AST (SGOT) 22 U/L (5-34); Albumin 3.4 g/dL (3.4-4.8); Alkaline Phosphatase 116 U/L (40-110); Anion Gap 14 mmol/L (10-20); BUN (Urea Nitrogen) 30 mg/dL (8.4-25.7); Bilirubin, Total 1.4 mg/dL (0.2-1.2); Calc. Creatinine Clearance 0 mL/min (70-130); Calcium 9.3 mg/dL (7.8-10.44); Carbon Dioxide 30 mmol/L (23-31); Chloride 100 mmol/L (98-107); Estimated GFR 23; Globulin 4.2 g/dL (2.4-3.5); Glucose 174 mg/dL (83-110); Potassium 3.4 mmol/L (3.5-5.1); Protein, Total 7.6 g/dL (5.8-8.1); Sodium 141 mmol/L (136-145)
[2022-09-27 13:59] LABS: #Basophils 0.1 thou/uL (0.0-0.2); #Eosinphils 0.2 thou/uL (0.0-0.7); #Lymphocytes 0.9 thou/uL (1.20-3.40); #Monocytes 0.4 thou/uL (0.11-0.59); #Neutrophils 4.6 thou/uL (1.40-6.50); %Basophils 2.1 % (0.0-1.0); %Eosinophils 3.1 % (0.0-10.0); %Lymphocytes 14.2 % (21.0-51.0); %Monocytes 6.9 % (0.0-10.0); %Neutrophils 73.6 % (42.0-75.0); Hemoglobin 14.8 g/dL (14.0-18.0); Mean Corpuscular HGB CONC 35.1 g/dL (32.0-36.0); Mean Corpuscular Hemoglobin 34.8 pg (27.0-31.0); Mean Corpuscular Volume 99.3 fl (78.0-98.0); Mean Platelet Volume 7.4 fL (7.4-10.4); Platelet Count 176 10x3/uL (130-400); RBC Distribution Width 11.8 % (11.5-14.5); Red Blood Cell (RBC) Count 4.25 mill/uL (4.70-6.10); White Blood Cell (WBC) Count 6.3 10x3/uL (4.8-10.8)
== END 2022-09-27 13:17 | disposition home or self-care (01) ==
LOC: MADLAB 13:16
PROVIDERS: ATTEND Internal Medicine
DX: L97.522 Non-pressure chronic ulcer of other part of left foot with fat layer exposed (principal); J45.50 Severe persistent asthma, uncomplicated; E11.9 Type 2 diabetes mellitus without complications
CPT/HCPCS: 36415; 71046; 80053; 85025

== ENCOUNTER 2022-10-14 10:28 | Outpatient (CLI) | payer OTHER | END 2022-10-14 10:29 | disposition home or self-care (01) | LOC: MADRAD 10:28 | PROVIDERS: ATTEND Neurological Surgery | DX: M47.22 Other spondylosis with radiculopathy, cervical region (principal) | CPT/HCPCS: 72050 ==